=== PATIENT | female | born 1990 | race Caucasian/White ===

== ENCOUNTER 2021-09-07 11:02 | Outpatient (CLI) | payer BC, SELFPAY ==
[2021-09-07 12:01] LABS: Absolute Lymphocyte Count 2.03 X10^3/uL (0.83-4.51); Absolute Neutrophil Count 6.7 X10^3/uL (2.0-7.7); Basophil# 0.02 X10^3/uL; Basophil% 0.2 % (0-1); Eosinophil# 0.05 X10^3/uL; Eosinophils% 0.5 % (0-5); Hematocrit 39.3 % (37-47); Hemoglobin 13.6 g/dL (12.0-15.0); Lymphocyte # 2.03 X10^3/ul (0.83-4.51); Lymphocyte % 21.2 % (19-41); Mean Corp Hgb Conc 34.6 g/dL (32-36); Mean Corpuscular Volume 86.6 fL (81-99); Mean Platelet Vol. 9.3 fl (6.2-12.0); Monocyte# 0.78 X10^3/uL; Monocyte% 8.2 % (0-10); NRBC Flagged by Analyzer 0 % (0-5); Neutrophil # 6.67 X10^3/uL (2.7-7.7); Neutrophil % 69.7 % (47-70); Platelet Count 311 K/mm3 (150-450); RBC Distribution Width CV 12.5 % (11.6-14.6); RBC Distribution Width SD 39.3 fl (35.1-43.9); Red Blood Count 4.54 M/mm3 (4.2-5.4); White Blood Count 9.6 K/mm3 (4.4-11.0)
[2021-09-07 13:00] LABS: HIV - WCH Non-Reactive (Nonreactive); Hepatitis B Surface Antigen Non-Reactive (Nonreactive); Hepatitis C Antibody Non-Reactive (Nonreactive); Rubella IgG Reactive (Nonreactive); Syphilis Antibodies Non-reactive
[2021-09-11 18:08] LABS: Chlamydia By Nucleic Acid AMP Negative (Negative)
[2021-09-12 16:46] LABS: Gonococcus By Nucleic Acid AMP Negative (Negative)
== END 2021-09-07 23:59 | disposition short-term general hospital (02) ==
PROVIDERS: Visit Provider Student in an Organized Health Care Education/Training Program
DX: Z34.81 Encounter for supervision of other normal pregnancy, first trimester (principal)
CPT/HCPCS: 36415; 85025; 86703; 86762; 86780; 86803; 87086; 87340; 87491; 87591

== ENCOUNTER → 2022-01-09 | Outpatient (CLI) | payer BC, SELFPAY ==
[2022-01-09 09:13] LABS: Hematocrit 34.7 % (37-47); Hemoglobin 11.6 g/dL (12.0-15.0); Mean Corp Hgb Conc 33.4 g/dL (32-36); Mean Corpuscular Hgb 29.3 pg (27.0-32.0); Mean Corpuscular Volume 87.6 fL (81-99); Mean Platelet Vol. 9.4 fl (6.2-12.0); Platelet Count 271 K/mm3 (150-450); RBC Distribution Width CV 11.9 % (11.6-14.6); RBC Distribution Width SD 38.2 fl (35.1-43.9); Red Blood Count 3.96 M/mm3 (4.2-5.4); White Blood Count 8.9 K/mm3 (4.4-11.0)
[2022-01-09 09:41] LABS: Glucose Challenge Gest 1H 50g 114 mg/dL (70-140)
== END | disposition home or self-care (01) ==
PROVIDERS: Visit Provider Student in an Organized Health Care Education/Training Program
DX: Z34.83 Encounter for supervision of other normal pregnancy, third trimester (principal)
CPT/HCPCS: 36415; 82950; 85027

== ENCOUNTER → 2022-03-23 | Outpatient (CLI) | payer BC, SELFPAY | END | disposition home or self-care (01) | LOC: LABSPEC 13:02 | PROVIDERS: Visit Provider Student in an Organized Health Care Education/Training Program | DX: Z36.85 Encounter for antenatal screening for Streptococcus B (principal) | CPT/HCPCS: 87081 ==

== ENCOUNTER 2022-04-10 12:25 | Inpatient (IN) | payer BC, SELFPAY ==
[2022-04-10] VITALS (23 sets, daily range): BP systolic 106–177; BP diastolic 58–88; PULSE 86–133; TEMP 36.8–37.3; O2SAT 97–99; BMI 34.1
[2022-04-10 11:05] LABS: ROM Internal Control Test YES-OK TO RESULT pt. (Internal QC); ROM Patient Test Negative (Negative)
--- NOTE | 2022-04-10 12:33 | PCM.HP.BLA ---
History and Physical Date of Admission: 04/10/22 HPI: 31-year-old G2, P0 at 39/3 weeks, MARVA 04/14/2022 by LMP, admitted for induction of labor for nonreassuring heart tones. Patient originally presented to triage for leaking fluid, ROM was negative. Reports lower abdominal discomfort and irregular. Denies regular contractions, vaginal bleeding. Reports movement. Denies headache, vision changes, chest pain or shortness of breath, nausea or vomiting fevers or chills, diarrhea constipation. 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 SAB, D&C G2: Current Medical history: Denies Surgical history: D&C Medications: vitamin Allergies: No known drug allergies Social history: Denies tobacco, alcohol, drug use Family history: Noncontributory Review of system: Negative otherwise stated above Physical exam Blood pressure 125/78, pulse 96% on room air, temp 98.8 ?F General: No acute distress HEENT: Normocephalic/atraumatic, PERRLA Cardiorespiratory: No increased effort Abdomen: Soft, nontender, gravid Extremities: No edema Musculoskeletal: Strength 5 out of 5 throughout all extremities Neurologic: No focal deficits Cervical exam: 1.5 cm per RN heart rate: 145/mod maxim/+accel/+ intermittent variabl decels [place]: irregular panel GBS neg 03/23 B positive HIV negative Hepatitis B/C neg Gonorrhea and chlamydia negative Syphilis negative Rubella immune Labs pending Assessment/Plan: 31-year-old G2, P0 at 39/3 weeks, MARVA 04/14/2022 by LMP, admitted for induction of labor for nonreassuring heart tones at term. uncomplicated. ?Overall status reassuring, however intermittent variable decelerations present. Discussed options of continued monitoring versus induction of labor with patient and her . Discussed method of an induction, process, as well as risks of intolerance and section. All questions answered. Risks and benefits of each option discussed. As patient is at term, recommend admission with induction of labor at this time. Patient amenable for induction of labor. ?Induction of labor with Pitocin ?Plans epidural ?GBS negative Assessment & Plan Assessment/Plan (1) 39 weeks gestation of :
[2022-04-10] MEDS: Lactated Ringers 1,000 ML 200 ML IV ×2 (13:20→19:18)
[2022-04-10 13:32] LABS: Absolute Lymphocyte Count 2.01 X10^3/uL (0.83-4.51); Basophil# 0.02 X10^3/uL; Basophil% 0.2 % (0-1); Eosinophil# 0.05 X10^3/uL; Eosinophils% 0.5 % (0-5); Hematocrit 34.2 % (37-47); Hemoglobin 11.3 g/dL (12.0-15.0); Lymphocyte # 2.01 X10^3/ul (0.83-4.51); Lymphocyte % 20.1 % (19-41); Mean Corpuscular Hgb 26.7 pg (27.0-32.0); Mean Corpuscular Volume 80.7 fL (81-99); Mean Platelet Vol. 10.1 fl (6.2-12.0); Monocyte# 0.84 X10^3/uL; Monocyte% 8.4 % (0-10); NRBC Flagged by Analyzer 0 % (0-5); Neutrophil # 7.03 X10^3/uL (2.7-7.7); Neutrophil % 70.2 % (47-70); Platelet Count 290 K/mm3 (150-450); RBC Distribution Width CV 13.7 % (11.6-14.6); Red Blood Count 4.24 M/mm3 (4.2-5.4)
[2022-04-10] MEDS: Oxytocin 30 units/NS 500 ml 30 UNITS/500 ML IV.SOLN IV (14:58)
[2022-04-10] MEDS: LACTATED RINGERS 500 ML 999 ML IV (16:53)
[2022-04-10] MEDS: fentaNYL-bupivacaine (epidural) 100 ML BAG EPIDURAL ×2 (17:40→21:44)
[2022-04-10] MEDS: 0.9% Saline Lock 10 ML Syringe IV (21:50)
[2022-04-10] MEDS: Ondansetron 4 MG/2 ML Vial IV (21:50)
[2022-04-11] VITALS (32 sets, daily range): BP systolic 101–138; BP diastolic 53–75; PULSE 70–168; TEMP 36.8–37.9; O2SAT 97–100
[2022-04-11] MEDS: Lactated Ringers 1,000 ML 200 ML IV ×4 (00:08→15:05)
[2022-04-11] MEDS: Ondansetron 4 MG/2 ML Vial IV ×3 (02:55→16:18)
[2022-04-11] MEDS: 0.9% Saline Lock 10 ML Syringe IV ×2 (02:55→22:33)
[2022-04-11] MEDS: fentaNYL-bupivacaine (epidural) 100 ML BAG EPIDURAL ×4 (02:55→17:45)
--- NOTE | 2022-04-11 08:20 | PCM.PN.OB ---
Subjective Subjective Patient seen and examined. Comfortable with epidural. Objective Data Objective Data Vital Signs: Vital Signs Temp Pulse BP Pulse Ox 99.0 F 112 H 109/60 98 04/11/22 07:20 04/11/22 07:21 04/11/22 07:21 04/11/22 07:20 Weight: 87.362 kg Body Mass Index (BMI) 34.1 Intake & Output: Intake and Output for Last 24 Hours 04/09/22 04/10/22 04/11/22 23:59 23:59 23:59 Intake Total 1512.14 / 1512.14 2276.47 / 2276.47 Output Total 1900 / 1900 Balance 1512.14 / 1512.14 376.47 / 376.47 Lab / Micro Data Result Diagrams: 04/10/22 13:20 Labs: Laboratory Results - last 24 hr 04/10/22 10:40: Vag Amniotic Fld Detect Negative 04/10/22 13:20: WBC 10.0, RBC 4.24, Hgb 11.3 L, Hct 34.2 L, MCV 80.7 L, MCH 26.7 L, MCHC 33.0, RDW Std Deviation 39.0, RDW Coeff of Amber 13.7, Plt Count 290, MPV 10.1, Immature Gran % (Auto) 0.600, Neut % (Auto) 70.2 H, Lymph % (Auto) 20.1, [place] % (Auto) 8.4, Eos % (Auto) 0.5, Baso % (Auto) 0.2, Absolute Neuts (auto) 7.0, Absolute Lymphs (auto) 2.01, Nucleated RBC % 0 04/10/22 13:20: Blood Type B POSITIVE, Antibody Screen NEGATIVE Micro: Microbiology 04/10/22 13:20 Nasal Secretion SARS-CoV-2 Antigen (Rapid) - Final Physical Exam Const alert, oriented x3 and no apparent distress Resp normal respiratory effort GI soft to palpation and non-tender Inspection: gravid Narrative: 5-6/90/0 AROM clear fluid Extremity no pedal edema Neuro no focal motor deficits NST FHR Rate Baby A Baseline: 145 Variability:: Moderate Accelerations:: 15 x 15 Decelerations:: None FHR Category:: Category I Assessment & Plan (1) 39 weeks gestation of : PLAN: Plan 31-year-old G2, P0 at 39/4 weeks continued induction of labor. Continue titrating Pitocin as tolerated, AROM this morning clear fluid.
[2022-04-11] MEDS: Oxytocin 30 units/NS 500 ml 30 UNITS/500 ML IV.SOLN 334 UNITS IV (19:04)
[2022-04-11] MEDS: Methylergonovine 0.2 MG/ML Ampul IM (19:06)
--- NOTE | 2022-04-11 19:20 | EX.PCM.OBRPT ---
Vaginal Delivery Findings Description of Procedure: Preop diagnosis: Term, maternal exhaustion Postop diagnosis: Term, maternal exhaustion Procedure: Vacuum-assisted vaginal delivery Surgeon: Serjio Capone MD Anesthesia: Epidural EBL: 1050 cc Complications: None Findings: Male infant in vertex position Apgars 8/9. Second-degree midline perineal laceration. Consent: Patient 39 weeks proceeded to complete dilation and is pushed for greater than 3 hours. The patient felt extreme exhaustion. Exam revealed head direct OA and +2 station. Pelvis felt adequate and appropriate for vaginal delivery. Fetus was not macrosomic. Epidural anesthesia was adequate for pain relief. Discussed options including section versus operative delivery versus expectant management. Risk benefits alternatives discussed. Patient elects for vacuum-assisted vaginal delivery, understands risks of cephalhematoma and shoulder dystocia. The process of vacuum-assisted vaginal delivery was explained and patient was shown the vacuum. Spin Table Operator was notified and arrived to delivery. Procedure: Vaginal examination reconfirmed direct OA position and +2 station. Kiwi vacuum was applied over the sagittal suture about 3 cm in front of the posterior fontanelle. Vacuum pressure was applied. The edge of the cup was carefully examined and no maternal tissue was entrapped under the cup. Gentle horizontal traction along the pelvic access in coordination with uterine contraction maternal pushing was applied. Progress of descent was noted with each pull. The handle of the vacuum device was gradually elevated when the perineum began to bulge. The cup did not pop off through the procedure. The cup was removed after the head was delivered. Head and shoulders were delivered with ease. Cord was cut and clamped. It was handed off to patient. Placenta was delivered via cord traction and fundal massage. IV oxytocin was initiated on facilitate uterine contractions. Methergine IM was given prophylactically. The cervix and vaginal wall were thoroughly examined. Second-degree midline perineal laceration was noted and repaired in typical fashion. The was examined after delivery and no visible lacerations or bruises were found.
[2022-04-11] MEDS: Ibuprofen 600 MG Tablet PO (20:19)
[2022-04-11] MEDS: Benzocaine/Lanolin/Aloe Vera 1 SPRAY EACH TOPICAL (20:19)
[2022-04-12 00:28] VITALS: BP 114/73; PULSE 90; RESP 18; TEMP 36.8; O2SAT 96
[2022-04-12 03:25] VITALS: BP 113/74; PULSE 90; RESP 18; TEMP 36.8; O2SAT 97
[2022-04-12] MEDS: Senna/Docusate Sodium 1 Tablet PO (06:50)
--- NOTE | 2022-04-12 07:10 | PCM.PN.OB ---
Subjective Subjective Working on breast-feeding. Lochia minimal. Having some issues with bladder control. Had this issue prior to delivery and had seen specialist in past. Voiding not completely uncontrollable but has had some leaking. Objective Data Objective Data Vital Signs: Vital Signs Temp Pulse Resp BP Pulse Ox O2 Del Method 98.3 F 90 18 113/74 97 Room Air 04/12/22 03:25 04/12/22 03:25 04/12/22 03:25 04/12/22 03:25 04/12/22 03:04/12/22 03:25 Oxygen Delivery Method Room Air Weight: 87.362 kg Body Mass Index (BMI) 34.1 Intake & Output: Intake and Output for Last 24 Hours 04/10/22 04/11/22 04/12/22 23:59 23:59 23:59 Intake Total 1512.14 / 1512.14 5900.81 / 5900.81 Output Total 3700 / 3700 600 / 600 Balance 1512.14 / 1512.14 2200.81 / 2200.81 -600 / -600 Lab / Micro Data Result Diagrams: 04/10/22 13:20 Micro: Microbiology 04/10/22 13:20 Nasal Secretion SARS-CoV-2 Antigen (Rapid) - Final Physical Exam Const alert, oriented x3 and no apparent distress HEENT normocephalic Head and Scalp: atraumatic Neck full ROM Resp normal respiratory effort Cardio regular rate GI normal to inspection, nondistended, normoactive bowel sounds GI Narrative: Uterus 2 cm below umbilicus Back/Spine normal ROM Extremity normal to inspection Extremity Narrative: Minimal pedal edema Neuro no focal motor deficits and no sensory deficits noted Psych mental status grossly normal and affect normal Assessment & Plan (1) Vaginal delivery: PLAN: day 1 status post vacuum-assisted vaginal delivery for maternal exhaustion. Discussed urinary control. Recommend pelvic floor therapy. Follow-up with specialist if not improved in 1 to 2 weeks. Home tomorrow.
[2022-04-12 08:15] VITALS: BP 101/65; PULSE 89; RESP 16; TEMP 36.8; O2SAT 96
[2022-04-12] MEDS: Acetaminophen 500 MG Tablet 1000 MG PO ×3 (08:17→22:04)
[2022-04-12 12:06] VITALS: BP 102/66; PULSE 85; RESP 16; TEMP 36.8; O2SAT 96
[2022-04-12] MEDS: Ibuprofen 600 MG Tablet PO ×2 (12:17→19:23)
--- NOTE | 2022-04-12 16:30 | CASEMGMT ---
Social Work Assessment Labor and Delivery Unit Patient Address: [address] [place] [address]., [place] [address] Phone number: [phone] Date of Referral: 04/11/2022 Time of Referral: 2107 Referred By: Dr. Serjio Capone Date of Intervention: 04/12/2022 Time of Intervention: 1629 Reason for Referral: Maternal anxiety History obtained from: Medical records and mother of baby (MOB) Paris Mathias; father of baby (FOB) Clifton Mathias present for part of conversation Household composition: MOB and FOB live together. No reported concerns with housing. Patient's parent/guardian status: TYLER is a 31-year-old female, to the FOB for the last 2 years but together since 2015. During private conversation MOB shared that FOB is a good and helps MOB with her anxiety. MOB denied any abuse, control or intimidation in this relationship. [place] infant is the first child for both parents. baby boy Chino Mathias was born on 04/11/2022. Medical History: TYLER is 2, para 0 now 1 after delivering [place]. First trimester miscarriage in 2020. care adequate. Apgars at are 8 and 9 at 1 and 5 minutes of life respectively. weight 9 pounds 10 ounces. 39 weeks gestation at delivery. Educational Status: College. No issues with reading, writing, or learning comprehension. 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 No reported concerns with finances. Infant Supplies: MOB and FOB report to have necessary supplies to care for the baby including safe sleep spaces and a car seat. MOB is breast-feeding. Childcare/Caregiver(s): MOB will be the primary caregiver along with help from the FOB. Parents do have fan blade aligner lined up if needed after MOB returns to work. Transportation: No reported concerns with transportation and both parents drive. Programs/Agencies Involved: No agency involvement. Declined help grow referral. Declined nurse visit program in [facility]. MOB reports to have a chief of police lined up and plans to work with [facility]. Children Services/Legal Issues: No history Behavioral Health Issues: Mental Health History: MOB reports history of being anxious but never to the point of needing medication or any type of intervention. MOB denies any history of suicidal or homicidal ideation, planning, intent or attempts. No depression history reported. [place] depression screen during this assessment was a score of 4, falling below the threshold for any depression or anxiety. Substance Use History: MOB and FOB denies any substance use history including alcohol or marijuana. No tobacco use. Family History: MOB reports there is some anxiety in her family. MOB reports believe her sister may have had a history of depression. Drug Screens: No drug screens noted in record. Family/Social Stressors: No reported stressors. Support Systems: FOB is reported as a support. MOB reports for emotional support would talk with her best friend who is a manager social, MOB's mother or MOB sister. Depression/Shaken Baby/Safe Sleeping: Reviewed safe sleeping and shaken baby prevention. Both parents able to provide appropriate responses. ASSESSMENT: Met with MOB and FOB in room, introducing to self and social work role. Both agreeable, pleasant and willing to talk to this service writer. MOB answered most of the questions, with FOB providing input intermittently and appropriately. Noted when education provided on community resources, MOB was quiet and looked to the FOB who politely declined any referrals. Both voiced acceptance however of having information provided to look at home. MOB and FOB report to have needed supplies for infant, to have support, and FOB plans to take a week or so off of work to help out. FOB's parents live close by, and then MOB's family is 30-45 minutes away but also able to help if needed. Educated both parents to mood and anxiety disorders, risk factors, and importance of seeking out help and support should symptoms arise and/or become distressing. MOB voiced understanding and agreement that would be willing to speak up if needed. When meeting with MOB privately, MOB denied any concerns for home going. No voiced concerns by staff regarding parent/child interactions or bonding. This service writer observed MOB to work on breast feeding, and handled the baby appropriately and gently. FOB talked about helping with some diaper changing since 's delivery. Both MOB and FOB voice positive feelings about the baby. Provided resource list for [facility] which includes information support for basic needs, counseling, senior care. Information on [facility] and the nurse visit program. Information on mood and anxiety disorders given. PLAN: MOB and to home when ready. Resources provided for home going. No other services requested or indicated. -ELIAS Matson, RUSLAN *This note was generated with Omate dictation software. It may contain incorrect words, spelling, and punctuation that were not noted in review of the chart prior to signing*
[2022-04-12 17:19] VITALS: BP 102/69; PULSE 91; RESP 16; TEMP 36.3; O2SAT 97
[2022-04-12 21:06] VITALS: BP 106/61; PULSE 68; RESP 17; TEMP 36.4; O2SAT 98
[2022-04-13 01:27] VITALS: BP 105/51; PULSE 75; RESP 16; TEMP 36.4; O2SAT 97
[2022-04-13] MEDS: Ibuprofen 600 MG Tablet PO ×2 (01:30→08:05)
--- NOTE | 2022-04-13 07:55 | DS.PCM_ITS ---
Discharge Summary Date of Admission: 04/10/22 Date of Discharge: 04/13/22 Summary: Patient arrived on 04/10/2022 for induction of labor with nonreassuring heart tones. Patient subsequently delivered via vacuum-assisted vaginal delivery for maternal exhaustion on 04/11/2022. Patient with routine recovery and discharged home on 04/13/2022 Meaningful Use Info Meaningful Use Diagnoses (Choose all that apply): None applicable Discharge Plan Admission Admit Date/Time: 04/10/22 12:25 Primary Reason for Your Visit: Induction of labor Attending Provider: Serjio Capone Instructions Additional Instructions / Restrictions: Regular diet. Okay to shower. weightbearing as tolerated. No records 4 to 6 w eeks call if chest pain, shortness of breath. Follow-up 4 to 6 weeks Discharge Orders/Prescriptions Prescriptions: No Action Probiotic 3 billion cell Capsule 3 cell PO DAILY 1 mg Tablet 1 tab PO DAILY Disposition Disposition (needs filled in before D/C Order can be placed): Home, Self Care
--- NOTE | 2022-04-13 07:58 | PN.OBGYN_ITS ---
Subjective Subjective No overnight complaints Objective Data Objective Data Vital Signs: Vital Signs Temp Pulse Resp BP Pulse Ox O2 Del Method 97.6 F L 75 16 105/51 L 97 Room Air 04/13/22 01:27 04/13/22 01:27 04/13/22 01:27 04/13/22 01:27 04/13/22 01:04/13/22 01:27 Oxygen Delivery Method Room Air Weight: 192 lb 9.6 oz Body Mass Index (BMI) 34.1 Intake & Output: Intake and Output for Last 24 Hours 04/11/22 04/12/22 04/13/22 23:59 23:59 23:59 Intake Total 5900.81 / 5900.81 Output Total 3700 / 3700 600 / 600 Balance 2200.81 / 2200.81 -600 / -600 Lab / Micro Data Result Diagrams: 04/10/22 13:20 Micro: Microbiology 04/10/22 13:20 Nasal Secretion SARS-CoV-2 Antigen (Rapid) - Final Physical Exam Const alert, oriented x3, no apparent distress, average body habitus, healthy appearing and well nourished HEENT normocephalic and moist oral mucous membranes Eyes PERRL Neck full ROM Resp normal respiratory effort, no retractions and no use of accessory muscles GI GI Narrative: Soft, nontender, uterus firm and below umbilicus Extremity normal to inspection and full ROM Neuro moves all extremities, no focal motor deficits and no sensory deficits noted Psych mental status grossly normal, affect normal, speech normal and activity/motor behavior normal Assessment & Plan (1) Vaginal delivery: PLAN: day 2 status post vacuum-assisted vaginal delivery for maternal exhaustion. Breast-feeding. Pain well controlled. Okay to discharge home if okay with [employer] scout
[2022-04-13 08:00] VITALS: BP 106/81; PULSE 74; RESP 16; TEMP 36.3; O2SAT 96
--- NOTE | 2022-04-13 11:00 | NURSING ---
Reviewed and agreed with Ara RN charting.
--- NOTE | 2022-04-19 15:10 | NURSING ---
Follow up phone call attempt, voicemail left.
== END 2022-04-13 11:21 | disposition home or self-care (01) | DRG 807 ==
LOC: WPOUT 12:29 → WP 12:29
PROVIDERS: Admitting Provider Student in an Organized Health Care Education/Training Program; Referring Provider Obstetrics & Gynecology; Visit Provider Obstetrics & Gynecology
DX: O75.81 Maternal exhaustion complicating labor and delivery (principal); Z37.0 Single live birth; O76 Abnormality in fetal heart rate and rhythm complicating labor and delivery; O70.1 Second degree perineal laceration during delivery; Z3A.39 39 weeks gestation of pregnancy
CPT/HCPCS: 59025; 59050; 84112; 85025; 86850; 86900; 86901; 87426; 99218; J7120; A4216; G0378; J2405

== ENCOUNTER → 2022-11-30 | Outpatient (CLI) | payer OTHER, SELFPAY ==
[2022-12-07 00:07] LABS: HPV APTIMA, High Risk Negative (Negative)
== END | disposition home or self-care (01) ==
LOC: LABSPEC 11:13
PROVIDERS: Visit Provider Student in an Organized Health Care Education/Training Program
DX: Z12.4 Encounter for screening for malignant neoplasm of cervix (principal)
CPT/HCPCS: 87624; 88175; G0145

== ENCOUNTER → 2024-04-09 | Outpatient (CLI) | payer OTHER, SELFPAY ==
[2024-04-09 13:05] LABS: Absolute Lymphocyte Count 1.92 X10^3/uL (0.83-4.51); Absolute Neutrophil Count 7.3 X10^3/uL (2.0-7.7); Basophil# 0.03 X10^3/uL; Basophil% 0.3 % (0-1); Hematocrit 39.2 % (37-47); Lymphocyte # 1.92 X10^3/ul (0.83-4.51); Lymphocyte % 18.9 % (19-41); Mean Corp Hgb Conc 33.2 g/dL (32-36); Mean Corpuscular Hgb 28.2 pg (27.0-32.0); Mean Platelet Vol. 9.1 fl (6.2-12.0); Monocyte# 0.76 X10^3/uL; Monocyte% 7.5 % (0-10); NRBC Flagged by Analyzer 0 % (0-5); Neutrophil # 7.34 X10^3/uL (2.7-7.7); Platelet Count 358 K/mm3 (150-450); RBC Distribution Width CV 12.8 % (11.6-14.6); RBC Distribution Width SD 39.5 fl (35.1-43.9); Red Blood Count 4.61 M/mm3 (4.2-5.4); White Blood Count 10.2 K/mm3 (4.4-11.0)
[2024-04-09 14:19] LABS: HIV - WCH Non-Reactive (Nonreactive); Hepatitis B Surface Antigen Non-Reactive (Nonreactive); Hepatitis C Antibody Non-Reactive (Nonreactive); Rubella IgG Reactive (Nonreactive); Syphilis Antibodies Non-reactive
[2024-04-14 22:07] LABS: Chlamydia By Nucleic Acid AMP Negative (Negative); Gonococcus By Nucleic Acid AMP Negative (Negative)
== END | disposition home or self-care (01) ==
PROVIDERS: PCP General Practice; Referring Provider Advanced Practice Midwife; Visit Provider Advanced Practice Midwife
DX: O09.90 Supervision of high risk pregnancy, unspecified, unspecified trimester (principal); Z3A.00 Weeks of gestation of pregnancy not specified
CPT/HCPCS: 36415; 85025; 86703; 86762; 86780; 86803; 86850; 86900; 86901; 87086; 87340; 87491; 87591

== ENCOUNTER → 2024-06-04 | Outpatient (CLI) | payer OTHER, SELFPAY ==
--- OUTSIDE RECORDS SUMMARY | 2024-06-04 10:12 | XMS RPT_ITS | CCD ---
Author Organization [facility] [employer] [facility] Care Team Providers Care Sweatband Shaper Name Role Phone FLAQUITA CORTES JR Unavailable Unavaila ble Unavailable Primary Care Provider Nasim Almaguer MD, Alexander Morin Primary Care Provider [phone] Alexander Almaguer MD Unavailable ALEXANDER ALMAGUER Attending Unavailable ALEXANDER ALMAGUER Primary Care Unavailable ALEXANDER ALMAGUER Primary Care Unavailable Medications Current Medications Medication Drug Class(es) Dates Sig (Normalized) Sig (Original) predniSONE 20 mg oral tablet (1 source) Start: 09-04-2022 End: 09-09-2022 take 2 tablets by mouth once daily predniSONE (DELTASONE) 20 mg tablet Indications: Eustachian tube dysfunction, bilateral Take 2 tablets by mouth once daily for 5 days. 10 tablet 0 09/04/2022 09/09/2022 Active Comment on above: Take 2 tablets by [facility] once daily for 5 days. Completed/Discontinued Medications Medication Drug Class(es) Dates Sig (Normalized) Sig (Original) fexofenadine hydrochloride 180 mg oral tablet (1 source) Histamine-1 Receptor Antagonist Start: 09-04-2022 take 1 tablet by mouth once daily fexofenadine (ZECHARIAH ALLERGY) 180 mg tablet Indications: Eustachian tube dysfunction, bilateral Take 1 tablet by mouth once daily. 30 tablet 0 09/04/2022 Active Comment on above: Take 1 tablet by [facility] once daily. fluticasone propionate 0.05 mg/actuat metered dose nasal spray (1 source) Corticosteroid Start: 09-04-2022 take 1 spray(s) nasal route twice daily fluticasone (FLONASE ALLERGY RELIEF) 50 mcg/actuation nasal spray Indications: Eustachian tube dysfunction, bilateral Use 1 Munden in each nostril twice daily. 1 Each 0 09/04/2022 Active Comment on above: Use 1 Munden in each nostril twice daily. MULTIVITAMIN WITH MINERALS (HAIR,SKIN AND NAILS ORAL) (1 source) MULTIVITAMIN WIT H MINERALS (HAIR,SKIN AND NAILS ORAL) Take by mouth. 0 Active Comment on above: Take by mouth. phenazopyridine hydrochloride 200 mg oral tablet (1 source) Start: 06-25-2018 take 1 tablet by mouth every twelve hours as needed phenazopyridine (PYRIDIUM, GERIDIUM) 200 mg tablet Take 1 tablet by mouth twice daily as needed. 6 tablet 0 06/25/2018 Active Comment on above: Take 1 tablet by melissa twice daily as needed. Problems Active Problems Problem Classification Problem Date Documented Da te Episodic/Chronic Disorders of lipid metabolism (5 sources) Mixed hyperlipidemia; Translations: [Mixed hyperlipidemia] Onset: 01-17-2024 01-17-2024 Chronic Otitis media and related conditions (1 source) Dysfunction of bilateral eustachian tubes; Translations: [Other specified disorders of Eustachian tube, bilateral] Episodic Urinary tract infections (1 source) Cystitis, unspecified without hematuria; Translations: [Cystitis, unspecified without hematuria] Onset: 06-25-2018 Episodic Past or Other Problems Problem Classification Problem Date Documented Date Episodic/Chronic Sexually transmitted infections (not HIV or hepatitis) (1 source) Abnormal cervical Papanicolaou smear; Translations: [Cervical high risk human papillomavirus (HPV) DNA test positive] Onset: 02-05-2017 02-05-2017 Episodic Unclassified (1 source) Onset: 01-17-2024 01-17-2024 Results Test Name Value Interpretation Reference Range Facility CBC W Auto Differential pane l (Bld)on 02-08-2024 Basophils (Bld) [#/Vol] 0.03 x10*3/uL Normal 0.00-0.10 [facility] Comment on above: Performed By: #### 5 7021-8 #### ALESSANDRA Escobedo ([id number]) [facility] ([facility]) [address] [place] [address] 32593 Basophils/100 WBC (Bld) 0.4 % Normal 0.0-2.0 [facility] Comment on above: Performed By: #### 5 7021-8 #### ALESSANDRA Escobedo ([id number]) [facility] ([facility]) [address] [place] [address] 51821 Eosinophils (Bld) [#/Vol] 0.10 x10*3/uL Normal 0.00-0.70 [facility] Comment on above: Performed By: #### 5 7021-8 #### ALESSANDRA Escobedo ([id number]) [facility] ([facility]) [address] [place] [address] 47425 Eosinophils/100 WBC (Bld) 1.3 % Normal 0.0-6.0 [facility] Comment on above: Performed By: #### 5 7021-8 #### ALESSANDRA Escobedo ([id number]) [facility] ([facility]) [address] [place] [address] 85004 Erythrocyte distribution width (RBC) [Ratio] 12.3 % Normal 11.5-14.5 [facility] Comment on above: Performed By: #### 5 7021-8 #### ALESSANDRA Escobedo ([id number]) [facility] ([facility]) [address] [place] [address] 20142 Hematocrit (Bld) [Volume fraction] 43.2 % Normal 36.0-46.0 [facility] Comment on above: Performed By: #### 5 7021-8 #### ALESSANDRA Escobedo ([id number]) [facility] ([facility]) [address] [place] [address] 96219 Hemoglobin (Bld) [Mass/Vol] 14.0 g/dL Normal 12.0-16.0 [facility] Comment on above: Performed By: #### 5 7021-8 #### ALESSANDRA Escobedo ([id number]) [facility] ([facility]) [address] [place] [address] 61614 Immature granulocytes (Bld) [#/Vol] 0.01 x10*3/uL Normal 0.00-0.70 [facility] Comment on above: Performed By: #### 5 7021-8 #### ALESSANDRA Escobedo ([id number]) [facility] ([facility]) [id number] [place] [address] 57336 Immature granulocytes/100 WBC (Bld) 0.1 % Normal 0.0-0.9 [facility] Comment on above: Result Comment: Jigna ture Granulocyte Count (IG) includes promyelocytes, myelocytes and metamyelocytes but does not include bands. Percent differential counts (%) should be interpreted in the context of the absolute cell counts (cells/UL). Performed By: #### 5 7021-8 #### ALESSANDRA Escobedo ([id number]) [facility] ([facility]) [address] [place] [address] 99580 Lymphocytes (Bld) [#/Vol] 2.63 x10*3/uL Normal 1.20-4.80 [facility] Comment on above: Performed By: #### 5 7021-8 #### ALESSANDRA Escobedo ([id number]) [facility] ([facility]) [address] [place] [address] 86312 Lymphocytes/100 WBC (Bld) 35.3 % Normal 13.0-44.0 [facility] Comment on above: Performed By: #### 5 7021-8 #### ALESSANDRA Escobedo ([id number]) [facility] ([facility]) [address] [place] [address] 36793 MCH (RBC) [Entitic mass] 28.3 pg Normal 26.0-34.0 [facility] Comment on above: Performed By: #### 5 7021-8 #### ALESSANDRA Escobedo ([id number]) [facility] ([facility]) [address] [place] [address] 23023 MCHC (RBC) [Mass/Vol] 32.4 g/dL Normal 32.0-36.0 [facility] Comment on above: Performed By: #### 5 7021-8 #### ALESSANDRA Escobedo ([id number]) [facility] ([facility]) [address] [place] [address] 45315 MCV (RBC) [Entitic vol] 87 fL Normal 80-100 [facility] Comment on above: Performed By: #### 5 7021-8 #### ALESSANDRA Escobedo ([id number]) [facility] ([facility]) [address] [place] [address] Monocytes (Bld) [#/Vol] 0.65 x10*3/uL Normal 0.10-1.00 [facility] Comment on above: Performed By: #### 5 7021-8 #### ALESSANDRA Escobedo (96815) [facility] ([facility]) [id number] [place] [address] 91863 Monocytes/100 WBC (Bld) 8.7 % Normal 2.0-10.0 [facility] Comment on above: Performed By: #### 5 7021-8 #### ALESSANDRA Escobedo (59309) [facility] ([facility]) [id number] [place] [address] 12412 Neutrophils (Bld) [#/Vol] 4.03 x10*3/uL Normal 1.20-7.70 [facility] Comment on above: Result Comment: Perc ent differential counts (%) should be interpreted in the context of the absolute cell counts (cells/uL). Performed By: #### 5 7021-8 #### ALESSANDRA Escobedo ([id number]) [facility] ([facility]) [id number] [place] [address] 43798 Neutrophils/100 WBC (Bld) 54.2 % Normal 40.0-80.0 [facility] Comment on above: Performed By: #### 5 7021-8 #### ALESSANDRA Escobedo ([id number]) [facility] ([facility]) [address] [place] [address] Nucleated RBC/100 WBC (Bld) [Ratio] 0.0 /100 WBCs Normal 0.0-0.0 [facility] Comment on above: Performed By: #### 5 7021-8 #### ALESSANDRA Escobedo ([id number]) [facility] ([facility]) [address] [place] [address] Platelets (Bld) [#/Vol] 312 x10*3/uL Normal 150-450 [facility] Comment on above: Performed By: #### 5 7021-8 #### ALESSANDRA Escobedo ([id number]) [facility] ([facility]) [address] [place] [address] RBC (Bld) [#/Vol] 4.94 x10*6/uL Normal 4.00-5.20 [facility] Comment on above: Performed By: #### 5 7021-8 #### ALESSANDRA Escobedo ([id number]) [facility] ([facility]) [address] [place] [address] WBC (Bld) [#/Vol] 7.5 x10*3/uL Normal 4.4-11.3 [facility] Comment on above: Performed By: #### 5 7021-8 #### ALESSANDRA Escobedo (85879) [facility] ([facility]) [id number] [place] [address] 19231 Comprehensive metabolic 2000 panelon 02-08-2024 Albumin BCP dye [Mass/Vol] 4.6 g/dL Normal 3.4-5.0 [facility] Comment on above: Performed By: #### 2 4323-8 #### ALESSANDRA Escobedo (67535) [facility] ([facility]) [address] [place] [address] ALP [Catalytic activity/Vol] 79 U/L Normal 33-110 [facility] Comment on above: Performed By: #### 2 4323-8 #### ALESSANDRA Escobedo ([id number]) [facility] ([facility]) [address] [place] [address] ALT With P-5'-P [Catalytic activity/Vol] 9 U/L Normal 7-45 [facility] Comment on above: Result Comment: Mony ents treated with Sulfasalazine may generate falsely decreased results for ALT. Performed By: #### 2 4323-8 #### ALESSANDRA Escobedo ([id number]) [facility] ([facility]) [address] [place] [address] Anion gap [Moles/Vol] 13 mmol/L Normal 10-20 [facility] Comment on above: Performed By: #### 2 4323-8 #### ALESSANDRA Escobedo ([id number]) [facility] ([facility]) [id number] [place] [address] 88164 AST With P-5'-P [Catalytic activity/Vol] 15 U/L Normal 9-39 [facility] Comment on above: Performed By: #### 2 4323-8 #### ALESSANDRA Escobedo (38092) [facility] ([facility]) [id number] [place] [address] 66817 Bilirubin [Mass/Vol] 0.7 mg/dL Normal 0.0-1.2 [facility] Comment on above: Performed By: #### 2 4323-8 #### ALESSANDRA Escobedo (25927) [facility] ([facility]) [address] [place] [address] 24883 Calcium [Mass/Vol] 9.8 mg/dL Normal 8.6-10.6 [facility] Comment on above: Performed By: #### 2 4323-8 #### ALESSANDRA Escobedo (72362) [facility] ([facility]) [address] [place] [address] 30076 Chloride [Moles/Vol] 102 mmol/L Normal 98-107 [facility] Comment on above: Performed By: #### 2 4323-8 #### ALESSANDRA Escobedo (67941) [facility] ([facility]) [address] [place] [address] 46840 CO2 [Moles/Vol] 27 mmol/L Normal 21-32 [facility] Comment on above: Performed By: #### 2 4323-8 #### ALESSANDRA Escobedo (81923) [facility] ([facility]) [address] [place] [address] 34797 Creatinine [Mass/Vol] 0.66 mg/dL Normal 0.50-1.05 [facility] Comment on above: Performed By: #### 2 4323-8 #### ALESSANDRA Escobedo ([id number]) [facility] ([facility]) [address] [place] [address] GFR/1.73 sq M.predicted MDRD (S/P/Bld) [Vol rate/Area] mL/min/{1.73_m2} Normal >60 [facility] Comment on above: Result Comment: Calc ulations of estimated GFR are performed using the 2020 CKD-EPI Study Refit equation without the race variable for the IDMS-Traceable creatinine methods. https://jasn.asnjournals.org/content/early//ASN.231090144 8 Performed By: #### 2 4323-8 #### ALESSANDRA Escobedo ([id number]) [facility] ([facility]) [id number] [place] [address] 83715 Glucose [Mass/Vol] 89 mg/dL Normal 74-99 [facility] Comment on above: Performed By: #### 2 4323-8 #### ALESSANDRA Escoebdo (53301) [facility] ([facility]) [id number] [place] [address] 02317 Potassium [Moles/Vol] 4.3 mmol/L Normal 3.5-5.3 [facility] Comment on above: Performed By: #### 2 4323-8 #### ALESSANDRA FIORE L (99787) [facility] ([facility]) [id number] [place] [address] 23068 Protein [Mass/Vol] 7.5 g/dL Normal 6.4-8.2 [facility] Comment on above: Performed By: #### 2 4323-8 #### ALESSANDRA FIORE L ([id number]) [facility] ([facility]) [id number] [place] [address] 73820 Sodium [Moles/Vol] 138 mmol/L Normal 136-145 [facility] Comment on above: Performed By: #### 2 4323-8 #### ALESSANDRA FIORE L ([id number]) [facility] ([facility]) [id number] [place] [address] 66662 Urea nitrogen [Mass/Vol] 11 mg/dL Normal 6-23 [facility] Comment on above: Performed By: #### 2 4323-8 #### ALESSANDRA Escobedo (69927) [facility] ([facility]) [address] [place] [address] Lipid 1996 panelon 4 Cholesterol [Mass/Vol] 198 mg/dL Normal 0-199 [facility] Comment on above: Result Comment: Age Desirable Borderline High High 0-19 Y 0 - 169 170 - 199 >/= 200 20-24 Y 0 - 189 190 - 224 >/= 225 >24 Y 0 - 199 200 - 239 >/= 240 All ranges are based on fasting samples. Specific therapeutic targets will vary based on patient-specific cardiac risk. Pediatric guidelines reference:Pediatrics 2011, 128(S5).Adult guidelines reference: NCEP ATPIII Guidelines,DANAE 2001, 258:2486-97 Venipuncture immediately after or during the administration of Metamizole may lead to falsely low results. Testing should be performed immediately prior to Metamizole dosing. Performed By: #### 2 4331-1 #### ALESSANDRA Escobedo ([id number]) [facility] ([facility]) [address] [place] [address] Cholesterol in HDL [Mass/Vol] 58.5 mg/dL Normal [facility] Comment on above: Result Comment: Age Very Low Low Normal High 0-19 Y < 35 < 40 40-45 ---- 20-24 Y ---- < 40 >45 ---- >24 Y ---- < 40 40-60 >60 Performed By: #### 2 4331-1 #### ALESSANDRA Escobedo (82573) [facility] ([facility]) [address] [place] [address] Cholesterol in LDL [Mass/Vol] 118 mg/dL High <=99 [facility] Comment on above: Result Comment: Near Borderline AGE Desirable Optimal High High Very High 0-19 Y 0 - 109 --- 110-129 >/= 130 ---- 20-24 Y 0 - 119 --- 120-159 >/= 160 ---- >24 Y 0 - 99 100-129 130-159 160-189 >/=190 Performed By: #### 2 4331-1 #### ALESSANDRA Escobedo (48587) [facility] ([facility]) [id number] [place] [address] 19052 Cholesterol in VLDL [Mass/Vol] 21 mg/dL Normal 0-40 [facility] Comment on above: Performed By: #### 2 4331-1 #### ALESSANDRA Escobedo ([id number]) [facility] ([facility]) [id number] [place] [address] 27785 CHOLESTEROL/HDL RATIO 3.4 Normal [facility] Comment on above: Result Comment: Ref Values Desirable < 3.4 High Risk > 5.0 Performed By: #### 2 4331-1 #### ALESSANDRA Escobedo ([id number]) [facility] ([facility]) [id number] [place] [address] 02967 NON HDL CHOLESTEROL 140 mg/dL Normal 0-149 [facility] Comment on above: Result Comment: Age Desirable Borderline High High Very High 0-19 Y 0 - 119 120 - 144 >/= 145 >/= 160 20-24 Y 0 - 149 150 - 189 >/= 190 ---- >24 Y 30 mg/dL above LDL Cholesterol goal Performed By: #### 2 4331-1 #### ALESSANDRA Escobedo (84346) [facility] ([facility]) [id number] [place] [address] 89260 Triglyceride [Mass/Vol] 107 mg/dL Normal 0-149 [facility] Comment on above: Result Comment: Age Desirable Borderline High High Very High 0 D-90 D 19 - 174 ---- ---- ---- 91 D- 9 Y 0 - 74 75 - 99 >/= 100 ---- 10-19 Y 0 - 89 90 - 129 >/= 130 ---- 20-24 Y 0 - 114 115 - 149 >/= 150 ---- >24 Y 0 - 149 150 - 199 200- 499 >/= 500 Venipuncture immediately after or during the administration of Metamizole may lead to falsely low results. Testing should be performed immediately prior to Metamizole dosing. Performed By: #### 2 4331-1 #### ALESSANDRA Escobedo (75694) [facility] ([facility]) [address] [place] [address] TSH WITH REFLEX TO FREE T4 I F ABNORMALon 02-08-2024 TSH Qn 1.25 m[IU]/L Normal 0.44-3.98 [facility] Comment on above: Order Comment: TSH t esting is performed using different testing methodology at [facility] than at other [facility]. Direct result comparisons should only be made within the same method. Performed By: #### T HYDS #### ALESSANDRA Escobedo ([id number]) [facility] ([facility]) [address] [place] [address] Culture, Throaton 04-19-2023 Culture, Throat ORDER#: [id number] OR DERED BY: QUINCY WILLIAMSON SOURCE: Throat Throat COLLECTED: 04/19/23 19:33 ANTIBIOTICS AT MAXINE.: RECEIVED : 04/19/23 21:59 Culture, Throat FINAL 04/22/23 07:02 Cult,Throat: Oral kevin, negative for Group A Strep and other beta Cult,Throat: hemolytic streptococci [place] [address] Normal [facility] Comment on above: Performed By: #### C XTHR #### [facility] [address] [place] [address] MFM GRAVID LESS THAN 14 WKSo n 12-17-2020 MFM GRAVID LESS THAN 14 WKS Interpretation provided by Perinatologist. Refer to OB Report folder for interpretation. Technologist: CV Dictated By: ANDI COMER, RADIOLOGIST Signed By: ANDI COMER, RADIOLOGIST Transcribed: 12.17.2020 19:39 Signed Out: 12/17/20 19:52:00 Normal [facility] MF TV ECHO OBSTETRICALon MF TV ECHO OBSTETRICAL Interpretation provided by Perinatologist. Refer to OB Report folder for interpretation. Technologist: CV Dictated By: ANDI COMER, RADIOLOGIST Signed By: ANDI COMER, RADIOLOGIST Transcribed: 12.17.2020 19:39 Signed Out: 12/17/20 19:52:00 Normal [facility] SURGICAL PATH REPORTon 12-14 SURGICAL PATH REPORT [facility] Department of Pathology [address] [place] [address] Name: LIZBETH MANRIQUEZ : 1990 Financial [id number] Number: Gender: Female Location: [facility] Admit 30 years Attending HARINDER LOGAN MD Age: Provider: Ordering HARINDER LOGAN MD Provider: Consulting: Surgical Pathology Report ACCESSION: COLLECTED DATE/TIME: RECEIVED DATE/TIME: PATHOLOGIST: [id number] 12/13/2020 07:56 EDT 12/13/2020 16:30 EDT FRANCOIS OCAMPO MD Final Diagnosis PRODUCTS OF CONCEPTION: - CHORIONIC VILLI. FRANCOIS OCAMPO PATHOLOGIST (Electronic Signature) Date Verified 12/14/2020 TS Clinical Data PREOP DIAGNOSIS: BLIGHTED OVUM POSTOP DIAGNOSIS: BLIGHTED OVUM PROCEDURE: SUCTION DILATION AND CURETTAGE SPECIMEN: PRODUCTS OF CONCEPTION Gross Description Labeled products of conception. Received in formalin in a suction apparatus are multiple irregular segments of vaz pink to red black soft tissue. The individual segments have a variable granular to partially smooth glistening membranous character. The specimen in total aggregate measures 5.6 x 5.1 x 2.0 cm. There are no grossly identifiable parts. Cardiac Surgeon sections are submitted in three cassettes. RAULITO/yin 12/13/2020 Codes CPT CODE: 03763 Print Date/ 12/14/2020 14:05 EDT Number: Time: Normal [facility] Comment on above: Performed By: #### 9 [id number] ####[facility] [id number] [place] [address] Medical Director: Francois Ocampo MD ABORHon 12-13-2020 ABORH Interpretation Positive Normal [facility] Comment on above: Performed By: #### C [id number], CD:[id number] #### [facility] [address] [place] [address] Composition Floor Layer: Francois Ocampo MD Patient History Check Previous Hx Normal [facility] Comment on above: Performed By: #### C D:[id number], CD:[id number] #### [facility] [address] [place] [address] Composition Floor Layer: Francois Ocampo MD VS 0.8% a cells 3+ Normal [facility] Comment on above: Performed By: #### C [id number], CD:[id number] #### [facility] [address] [place] [address] Composition Floor Layer: Francois Ocampo MD VS 0.8% b cells 0 [facility] Comment on above: Performed By: #### C [id number], CD:[id number] #### [facility] [address] [place] [address] Composition Floor Layer: Francois Ocampo MD VS Anti-A Unit 0 Normal [facility] Comment on above: Performed By: #### C [id number], CD:[id number] #### [facility] [address] [place] [address] Composition Floor Layer: Francois Ocampo MD VS Anti-B Unit 4+ Normal [facility] Comment on above: Performed By: #### C [id number], CD:[id number] #### [facility] [address] [place] [address] Composition Floor Layer: Francois Ocampo MD VS Anti-D Unit 4+ Normal [facility] Comment on above: Performed By: #### C [id number], CD:[id number] #### [facility] [address] [place] [address] Composition Floor Layer: Francois Ocampo MD ABSCon 12-13-2020 ABSC Final Interp Negative [facility] Comment on above: Performed By: #### C [id number], CD:[id number] #### [facility] [address] [place] [address] Composition Floor Layer: Francois Ocampo MD Pt Hx check done? Yes [facility] Comment on above: Performed By: #### C D:[id number], CD:[id number] #### [facility] [address] [place] [address] Composition Floor Layer: Francois Ocampo MD VS SCI Gel 0 [facility] Comment on above: Performed By: #### C [id number], CD:[id number] #### [facility] [address] [place] [address] Composition Floor Layer: Francois Ocampo MD VS SCII Gel 0 [facility] Comment on above: Performed By: #### C D:[id number], [id number] #### [facility] [address] [place] [address] Composition Floor Layer: Francois Ocampo MD Anesthesiaon 12-13-2020 Anesthesia Patient: FARTUN MANRIQUEZ Age: 30 years Sex: Female : 1990 Associated Diagnoses: None Author: FRANCOIS JOINER MD Postoperative Information Time Seen: Date & Time 12/13/2020 08:40:00. Post Operative Info: Post operative day: Post Anesthesia Care Unit. Patient location: PACU. Assessment Postanesthesia assessment Vitals: Vital Signs (last value in last 48 hours) Temperature Oral: 36.8 degC (12/13/20 06:00:00) Temperature Temporal Artery: 36.4 degC (12/13/20 08:30:00) Respiratory Rate: 19 br/min (12/13/20 08:40:00) Peripheral Pulse Rate: 78 bpm (12/13/20 08:40:00) Heart Rate Monitored: 78 bpm (12/13/20 08:40:00) Systolic Blood Pressure: 118 mmHg (12/13/20 08:40:00) Diastolic Blood Pressure: 76 mmHg (12/13/20 08:40:00) Mean Arterial Pressure, Cuff: 91 mmHg (12/13/20 08:40:00) SpO2: 97 % (12/13/20 08:40:00). Mental status: at preoperative baseline. Respiratory support: normal oxygenation and ventilation. Pain: controlled. Nausea status: abscence of nausea and vomiting. Postoperative hydration status: euvolemic. Notes: normothermia. Normal [facility] Anesthesia Patient: FARTUN MANRIQUEZ Age: 30 years Sex: Female : 1990 Associated Diagnoses: None Author: FRANCOIS JOINER MD DIAGNOSIS: Missed AB. Preoperative Information Procedure/ Case: . NPO greater than 8 hours. Anesthesia history Patient's history: negative. Family's history: negative. Review of Systems ALL SYSTEMS REVIEWED: CV, PULM, GI, , NEURO, HEPATIC, HEME, ENDO, PSYCH, MS HISTORY/ROS: The. Patient denies cardiovascular diseases or asthma. MILES: Denies. Negative screen. Health Status Allergies: Allergies (1) Active Reaction No Known Medication Allergies None Documented Current medications: No qualifying data available LABORATORY DATA Chemistry BMP Plus Mag No qualifying data available. Hematology CBC brief [address] No qualifying data available. Coagulation PT INR [address] No qualifying data available. Test No qualifying data available. Histories Past Medical History: Past Medical History (1) Procedure history: Atkins teeth in 2019 at 29 Years. Last pap - Abnormal - had colp, had bx f/u Q6 mon performed by NONI LEÓN in the month of 06/2018 at 27 Years. 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 Sexual Sexually active: Yes. Uses condoms: Yes. Other contraceptive use: None. Substance Abuse Denies Substance Abuse Tobacco Never (less than 100 in lifetime) Tobacco Use:. Psychosocial History No active psychosocial history has been recorded. Physical Examination VITALS Vital Signs (last value in last 48 hours) Temperature Oral: 36.8 degC (12/13/20 06:00:00) Respiratory Rate: 20 br/min (12/13/20 06:00:00) Heart Rate Monitored: 99 bpm (12/13/20 06:00:00) Systolic Blood Pressure: 128 mmHg (12/13/20 06:00:00) Diastolic Blood Pressure: 75 mmHg (12/13/20 06:00:00) SpO2: 100 % (12/13/20 06:00:00)Height and Weight (last value in last 48 hours) Height/Length Dosin.02 cm (12/13/20 06:00:00) Weight Dosin kg (12/13/20 06:00:00) Weight Measured: 72 kg (12/13/20 06:00:00) General: Alert and oriented. Airway: Mallampati classification: II (soft palate, fauces, uvula visible), No loose teeth. Assessment and Plan [place] [employer] Anesthesiologists (ASA) physical status classification: Class I. Anesthetic Preoperative Plan Premedication. Anesthetic technique: General anesthesia. Special monitoring: Standard ASA monitors.. Postoperative pain management: Per surgeon. Risks discussed: Patient is a low risk candidate for low to mild risk procedure. Informed consent: signed by patient. Notes: Ethnicity: Non white Language: Burundian Smoking: Non smoker Email: Refused Betablocker: None, Charting was completed using voice recognition technology and may include unintended errors.. Normal [facility] COVID-19 by PCR SWEDon 12-13 SARS-CoV-2 (COVID-19) RNA SHILOH+probe Ql (Unsp spec) Negative Normal [facility] Comment on above: Performed By: #### C [id number] #### [facility] [address] [place] [address] Composition Floor Layer: Francois Ocampo MD OR Nursing Record - Main Temo n 05-04-2021 OR Nursing Record - Main OR OR Nursing Record - Main OR Summary Primary Physician: HARINDER LOGAN MD Finalized Date/Time: 12/13/20 08:17:53 Pt. Name: LIZBETH MANRIQUEZ /Sex: 1990 Female Med Rec #: [id number] Physician: Financial #: [id number] Pt. Type: A Room/Bed: / Admit/Disch: 12/13/20 05:59:00 - Institution: Transport to OR - Main OR Entry 1 By Tiffanie Thomas RN, Date/Time Leaving 12/13/20 07:33:00 Janki Santiago RN, Devon Harp PA-C, Desmond Siderails Up? Yes Last Modified By: Janki Santiago RN 12/13/20 07:40:14 Case Times - Main OR Entry 1 Patient In Room Time 12/13/20 07:34:00 Out Room Time 12/13/20 07:59:00 Anesthesia Facility Times Induction Time 12/13/20 07:35:00 Stop Time 12/13/20 07:58:00 [place] Protocol Yes Completed Surgery Start Time 12/13/20 07:50:00 Stop Time 12/13/20 07:56:00 Last Modified By: Janki Santiago RN 12/13/20 07:59:59 Surgical Procedures - Main OR Entry 1 Procedure Suction D and C Modifiers None Surgeon Procedure SUCTION DILATION AND Primary Procedure Yes Description CURETTAGE Primary Surgeon HARINDER LOGAN MD Start 12/13/20 07:50:00 Stop 12/13/20 07:56:00 Anesthesia Type General Surgical Service SN - Obstetric/Gynecology Last Modified By: Janki Santiago RN 12/13/20 07:59:59 Case Attendance - Main OR Entry 1 Entry 2 Entry 3 Case Attendee VON COMER, HARINDER JOINER MD, Desmond Pandya PA-C Role Performed Surgeon Primary Anesthesiologist Primary JOSEE Primary Time In 12/13/20 07:34:00 12/13/20 07:34:00 12/13/20 07:34:00 Time Out 12/13/20 07:59:00 12/13/20 07:59:00 12/13/20 07:59:00 Procedure Suction D and C(None) Suction D and C(None) Suction D and C(None) Last Modified By: Pamela RN, Janki Santiago RN, Janki Santiago RN, Janki 12/13/20 08:00:00 12/13/20 08:00:00 12/13/20 08:00:00 Entry 4 Entry 5 Entry 6 Case Attendee Division Director SURVEYOR, Sultana Martha JAMA, Tiffanie Santiago RN, Janki Role Performed Scrub Primary Marketing Operations Consultant Primary Marketing Operations Consultant [place] Time In 12/13/20 07:34:00 12/13/20 07:34:00 12/13/20 07:34:00 Time Out 12/13/20 07:59:00 12/13/20 07:59:00 12/13/20 07:59:00 Procedure Suction D and C(None) Suction D and C(None) Suction D and C(None) Last Modified By: Pamela JAMA, Janki Santiago RN, Janki Morton RN 12/13/20 08:00:00 12/13/20 08:00:00 12/13/20 08:00:00 General Case Data - Main OR Entry 1 Case Information OR OR 05 Schedule Type Scheduled Case Level Level 4 Wound Class Clean-Contaminated Specialty SN - ASA Class 1 Obstetric/Gynecology Procedure History Yes Documented Diagnosis Preop Diagnosis BLIGHTED OVUM Postop Diagnosis BLIGHTED OVUM Last Modified By: Janki Santiago RN 12/13/20 07:42:25 Delays - Main OR Entry 1 Delay Reason No Delay Last Modified By: Janki Santiago RN 12/13/20 07:52:50 Patient Positioning - Main OR Entry 1 Procedure Suction D and C(None) Body Position Lithotomy Left Arm Position Extended on padded arm Right Arm Position Extended on padded arm board board Left Leg Position Secured in Stirrup Right Leg Position Secured in Stirrup Feet Uncrossed? Yes Press Points Checked Yes By MARISEL COMER, FRANCOIS, Positioning Devices Padded Armboard, VON COMER, Jaclyn PIZANO Candy Cane, Swasey RN, Janki, Briannaow under Head Katiuska TRIPP, Martha Logan RN, Tiffanie Last Modified By: Janki Santiago RN/04/21 07:53:10 Skin Prep - Main OR Entry 1 Procedure Suction D and C(None) Prep Area Perineal Prep Agents Betadine Solution By Desmond Harp PA-C Hair Removal Last Modified By: Janki Santiago RN 12/13/20 07:54:05 Counts Verification - Main OR Entry 1 Entry 2 Count Type Initial Final Closing Count Participants Division Director SURVEYOR, Abilio SURVEYOR, Pamela Gonzalez RN, Pamela Gonzalez RN, Janki Shearer Count Status Correct Correct Items Counted Sponges Sponges Surgeon Notified n/a Yes Closing Count Correct Last Modified By: Janki Santiago RN, RN, Jessica 12/13/20 08:08:47 12/13/20 08:08:47 Counts Action Taken - Main OR NOT APPLICABLE Entry 1 Surgeon Notified No Count Incorrect Last Modified By: Catheters, Drains, Tubes - Main OR NOT APPLICABLE Entry 1 Last Modified By: Medication Administration - Main OR NOT APPLICABLE Entry 1 Last Modified By: Cultures & Specimens - Main OR Entry 1 Specimens Taken Routine Body Site PRODUCTS OF CONCEPTION Last Modified By: Janki Santiago RN 12/13/20 08:13:29 Skin Assessment - Main OR Entry 1 Skin Integrity at Intact Skin Abnormality at No Incision Site: Incision Site: General/Overall WNL/INTACT Skin Integrity: Last Modified By: Janki Santiago RN 12/13/20 08:10:15 Surgical Irrigation - Main OR Entry 1 Irrigant Saline Last Modified By: Janki Santiago RN 12/13/20 08:10:20 Patient Care Devices - Main OR Entry 1 Equipment Type Suction D&C Machine Last Modified By: Janki Santiago RN 12/13/20 08:10:37 Dressing/Packi (more content not included)... Normal [facility] Operative Reporton Operative Report Patient: FARTUN MANRIQUEZ Age: 30 years Sex: Female : 1990 Associated Diagnoses: Missed ; Blighted ovum; 12 weeks gestation of Author: VON COMER, HARINDER Postoperative Information Post Operative Info: Procedure/ Case: suction d and c. Date/ Time: 12/13/2020 07:41:00 Preoperative Diagnosis: Missed - YSL25-TS O02.1, Medical, Blighted ovum - ULG66-QZ O02.0, Medical, 12 weeks gestation of - QAV98-JU Z3A.12, Medical. Postoperative Diagnosis: same. Performed by: HARINDER LOGAN MD. Estimated Blood Loss: 50 ml. Specimens Removed: pocs. Complications: None. Notes: pt understands risks and consents to procedure. pt had been given option of waiting for spont sab , or medical rx, or d and c and she wants suction d and c. pt taken to OR , given general anesthesia and prepped and draped in usual fashion in dorsal lithotomy position. time out done. exam under anesthesia, nl external genitalia, vagina and cervix nl. bimanual exam minimally enlarged uterus c/w just 7 wks sac even though 12 wks by lmp . cervix grasped wtih a single tooth tenaculum and cervix dilated to admit a 8 cm curved currette. suction currettage done X 2 , then gentle feel with smooth currrette. no further tissue obtained, one more pass with suction currette and was empty. no active bleeding . tenaculum removed and good hemostasis noted. bimanual reveals uterus firmed down nicely. ebl 30 cc. left to recover in good condition. . Normal [facility] PACU Phase I - Main ORon PACU Phase I - Main OR PACU Phase I - Main OR Summary Primary Physician: HARINDER LOGAN MD Finalized Date/Time: 12/13/20 08:39:11 Pt. Name: LIZBETH MANRIQUEZ/Sex: 1990 Female Med Rec #: [id number] Physician: Financial #: [id number] Pt. Type: A Room/Bed: / Admit/Disch: 12/13/20 05:59:00 - Institution: PACU I - Case Times - Main OR Entry 1 In PACU I 12/13/20 08:00:00 Ready for Transfer 12/13/20 08:39:00 Last Modified By: Parul Cantu RN 12/13/20 08:39:04 Finalized By: Parul Cantu RN Document Signatures Signed By: Parul Cantu RN 12/13/20 08:39 Parul Cantu RN 12/13/20 08:39 Parul Cantu RN 12/13/20 08:39 Parul Cantu RN 12/13/20 08:39 Normal [facility] PACU Phase II - Main ORon PACU Phase II - Main OR PACU Phase II - Main OR Summary Primary Physician: HARINDER LOGAN MD Finalized Date/Time: 12/13/20 08:41:49 Pt. Name: LIZBETH MANRIQUEZ/Sex: 1990 Female Med Rec #: [id number] Physician: Financial #: [id number] Pt. Type: A Room/Bed: / Admit/Disch: 12/13/20 05:59:00 - Institution: PACU II - Case Times - Main OR Entry 1 In PACU II 12/13/20 08:40:00 Ready for PACU II n/a Discharge Discharge from PACU 12/13/20 08:41:00 II Last Modified By: Parul Cantu RN 12/13/20 08:41:46 Finalized By: Parul Cantu RN Document Signatures Signed By: Parul Cantu RN 12/13/20 08:41 Parul Cantu RN 12/13/20 08:41 Normal [facility] Preop - Main ORon 12-13-2020 Preop - Main OR Preop - Main OR Summ aj Primary Physician: HARINDER LOGAN MD Finalized Date/Time: 12/13/20 06:39:34 Pt. Name: LIZBETH MANRIQUEZ/Sex: 1990 Female Med Rec #: [id number] Physician: Financial #: [id number] Pt. Type: A Room/Bed: / Admit/Disch: 12/13/20 05:59:00 - Institution: Preop - Case Times - Main OR Entry 1 Patient Arrival Time 12/13/20 06:07:00 Patient Ready for 12/13/20 06:39:00 Surgery Last Modified By: Dayana Farmer RN 12/13/20 06:39:33 Finalized By: Dayana Farmer RN Document Signatures Signed By: Dayana Farmer RN 12/13/20 06:39 Normal [facility] Phone Msgon 12-12-2020 Phone Msg - From: HARINDER LOGAN MD To: Alysa You; Sent: 12/12/2020 11:01:33 EDT Subject: neeeds suction d and c. i see the prev message sent without the patients name attached!> sorry. Added. Normal [facility] Phone Msg - From: HARINDER LOGAN MD To: Alysa You; Sent: 12/12/2020 11:02:32 EDT Subject: suctilon d and c. this week From: HARINDER LOGAN MD To: Alysa You; Sent: 12/10/2020 10:56:27 EDT Subject: schedule suction d and c danny she has a blighted ovum. and wants suciton d and c saturday or . ( i am off for a week after BUT i could come in and do it 7:30 saturday if thats the only available time ) but not after 0 . pt went to [facility] and had us that showed blighted ovum and was conclusive by size of sac. us done at [facility] had been inconclusive. we discussed options such as wait, do cyctoec for medical ab or d and c. she wants suction d and c . we discused procedure and risks and what to expect post op. she consents . From: Alysa You To: HARINDER LOGAN MD; Sent: 12/12/2020 12:00:47 EDT Subject: RE: nik valdez. this week Spoke with patient, okay for tomorrow, 12/13 @ 7:30am. Patient aware SW will contact her to register her, give her all the details where and what time to arrive, etc. Normal [facility] Phone Msgon 12-07-2020 Phone Msg - From: HARINDER LOGAN MD To: Chandni Moura MA; Sent: 12/07/2020 14:37:34 EDT Subject: us possible sab i spoke w pt. she has no bleeding. had us showed 5 wks sac, now has us that shows 6 5/7 wks sac w no pole. not read as blighted ovum. i discussed options and she would like to rept us in a week w [facility] at [facility]. so send over the req and the ultrasounds and hcgs to [facility] fax. faxed Normal [facility] Phone Msgon 11-22-2020 Phone Msg - From: Janet El To: Chandni Moura MA; Sent: 11/11/2020 14:21:19 EDT Subject: Ultrasound order needed OB patient called back and I read her the message regarding her HCG quant results. She will need an order to have an ultrasound done in 10 days. Patient is also aware to call the office if she is having any pain. She was happy to hear that she is 3 to 4 weeks . [phone] pt aware order in computer and number given to sched From: Hortensia Byrne To: Chandni Moura MA; Sent: 11/22/2020 10:19:03 EDT Subject: FW: Ultrasound order needed Patient called since she was trying to schedule this. Order has not been signed off on yet for the ultrasound. If you could please have Dr. Logan sign order. Patient would like a call when it's been done. From: Chandni Moura MA To: Eric Finn MAon; Sent: 11/22/2020 11:12:21 EDT Subject: FW: Ultrasound order needed orders signed Patient aware Normal [facility] US TV ECHO OBon 11-21-2020 US TV ECHO OB US TRANSVA GINAL CLINICAL STATEMENT: VIABILITY. TECHNOLOGIST NOTES: WHAT SYMPTOMS ARE YOU EXPERIENCING? - dating and viability COMPARISON: 11/08/2020 FINDINGS: Transvaginal sonographic examination of the pelvis shows the uterus measuring 7.7 x 5.0 x 3.8 cm in diameter. There is a hypoechoic focus within the anterior fundus measuring 0.9 x 0.9 x 0.5 cm in diameter, likely a leiomyoma. There is now a small gestational sac within the uterine fundus with a mean diameter of 0.8 cm, consistent with a gestational age of 5 weeks 4 days. There is no apparent yolk sac, pole, or heart pulsation at this time. The cervix measures 3.4 cm in length, and is closed. The right ovary measures 2.5 x 2.1 x 1.7 cm in diameter. The left ovary measures 3.1 x 1.9 x 1.6 cm in diameter. There are tiny follicular cysts within both ovaries. There was normal vascular flow within both ovaries, including color flow and Doppler imaging, with normal waveforms. There is no fluid in the cul-de-sac. IMPRESSION: Small intrauterine gestational sac of approximately 5 weeks 4 days size without yolk sac or pole at this time. A progress ultrasound study and serial hCG levels are recommended. Small uterine leiomyoma. Normal-appearing ovaries. Electronically signed by: Ji Murillo MD 11/21/2020 12:25 PM CDT Normal [facility] Comment on above: Order Comment: Order ed on Fin# [id number] Result Comment: Tech nologist: REGINA Dictated By: JI MURILLO MD Signed By: JI MURILLO MD Signed Out: 11/21/20 13:25:26 THIN PREP IMAGE SEND OUTon 0 11-14-2020 THIN PREP IMAGE SEND OUT See Report Normal [facility] Comment on above: Order Comment: Order ed on Fin# [id number] Performed By: #### C [id number] #### [facility] [address] [place] [address] Composition Floor Layer: Francois Ocampo MD HCG QUANTon 11-11-2020 HCG, Quant 674.0 mIU/mL Normal [facility] Comment on above: Result Comment: 0.2- 1 weeks 5 -50 mIU/ml 1 - 2 weeks 50-500 mIU/ml 2 - 3 weeks 100-5,000 mIU/ml 3 - 4 weeks 500-10,000 mIU/ml 4 - 5 weeks 1,000-50,000 mIU/ml 5 - 6 weeks 10,000-100,000 mIU/ml 6 - 8 weeks 15,000-200,000 mIU/ml 2 - 3 months 10,000-100,000 mIU/ml Performed By: #### 1 [id number] ####[facility] [id number] [place] [address] Medical Director: Francois Ocampo MD Phone Msgon 11-11-2020 Phone Msg - From: HARINDER LOGAN MD To: Chandni Moura MA; Sent: 11/11/2020 13:04:41 EDT Subject: she was supposed to have hcg drawn yest. its not in chart. did she go?? needs to go to same location as last draw. From: Chandni Moura MA To: HARINDER LOGAN MD; Sent: 11/11/2020 13:10:10 EDT Subject: RE: she was supposed to have hcg drawn yest. she couldn't go yesterday went today at 740am [facility] GP CHLAMon 11-10-2020 Genprobe Chlamydia Negative Normal [facility] Comment on above: Order Comment: Order ed on Fin# [id number] Result Comment: This Chlamydia assay is being performed via a second generation NAAT that utilizes target capture, carton marker machine mediated amplification and dual kenetic assay technologies. Performed By: #### 1 [id number] #### [facility] [address] [place] [address] Composition Floor Layer: Francois Ocampo MD GP GCon 11-10-2020 Genprobe GC Negative Normal [facility] Comment on above: Order Comment: Order ed on Fin# [id number] Result Comment: This Gonorrhoea assay is being performed via a second generation NAAT that utilizes target capture, carton marker machine mediated amplification and dual kenetic assay technologies. Performed By: #### 1 [id number], [id number] #### [facility] [address] [place] [address] Composition Floor Layer: Francois Ocampo MD US TV ECHO OBon 11-10-2020 US TV ECHO OB ADDENDUM #1 HARINDER LOGAN MD confirmed receipt of the results with [facility] staff. Electronically signed by: Reed Goodson MD 11/09/2020 10:46 PM CDT ORIGINAL REPORT PROCEDURE: US , Transvaginal CLINICAL INDICATION: The patient is 30 years old and is Female; VIABILITY TECHNIQUE: Real-time transvaginal obstetrical ultrasound of the maternal pelvis and a first trimester with image documentation. Transvaginal imaging was used for better evaluation of the fetus and adnexa. COMPARISON: No relevant prior studies available. FINDINGS: GESTATION: LMP is 09/12/2020. This corresponds to a gestational age of 8w1d. MARVA is 06/19/2021. There is NO gestational sac identified in the uterus. UTERUS/CERVIX: The uterus measures 7.7 x 4.3 x 5.4 cm. Endometrial stripe complex is mostly uniform but thickened 11 mm. Tiny uterine fibroid in the anterior intramural lower uterine body measuring 8 x 7 x 6 mm. OVARIES: Right ovary not visualized transvaginally or transabdominally. No RIGHT adnexal masses. Left ovary measures 3.6 x 2.5 x 2.4 cm. Normal color flow. FREE FLUID: There is trace free fluid in the cul-de-sac. IMPRESSION: NO intrauterine gestation identified. This may be secondary to the early age of the . However, ectopic is not excluded on the basis of this examination. Recommend correlation with serial beta hCG levels, followup ultrasonography and clinical examination as indicated. Trace free fluid identified. RIGHT ovary not identified. LEFT ovary is unremarkable sonographically. Electronically signed by: Reed Goodson MD 11/08/2020 12:08 PM CDT [facility] Comment on above: Order Comment: Order ed on Fin# [id number] Result Comment: Tech nologist: LH Dictated By: REED GOODSON MD Signed By: REED GOODSON MD Signed Out: 11/09/20 23:46:32 ABORHon 11-09-2020 ABORH CK Interp Positive [facility] Comment on above: Performed By: #### C D:[id number], CD:[id number] #### [facility] [address] [place] [address] Composition Floor Layer: Francois Ocampo MD ABORH Interpretation Positive [facility] Comment on above: Performed By: #### C D:[id number], CD:[id number] #### [facility] [address] [place] [address] Composition Floor Layer: Francois Ocampo MD Anti-A recheck 0 [facility] Comment on above: Performed By: #### C D:[id number], CD:[id number] #### [facility] [address] [place], [place] [id number] Composition Floor Layer: Francois Ocampo MD Anti-B recheck 4+ [facility] Comment on above: Performed By: #### C D:[id number], CD:[id number] #### [facility] [address] [place], [place] [id number] Composition Floor Layer: Francois Ocampo MD Anti-D recheck 3+ [facility] Comment on above: Performed By: #### C D:[id number], [id number] #### [facility] [address] [place] [address] Composition Floor Layer: Francois Ocampo MD Patient History Check No Previous Hx [facility] Comment on above: Performed By: #### C D:[id number], CD:[id number] #### [facility] [address] [place] [address] Composition Floor Layer: Francois Ocampo MD VS 0.8% a cells 4+ Normal [facility] Comment on above: Performed By: #### C D:[id number], [id number] #### [facility] [address] [place] [address] Composition Floor Layer: Francois Ocampo MD VS 0.8% b cells 0 [facility] Comment on above: Performed By: #### C D:[id number], [id number] #### [facility] [address] [place] [address] Composition Floor Layer: Francois Ocampo MD VS Anti-A Unit 0 Normal [facility] Comment on above: Performed By: #### C D:[id number], CD:[id number] #### [facility] [address] [place] [address] Composition Floor Layer: Francois Ocampo MD VS Anti-B Unit 4+ [facility] Comment on above: Performed By: #### C [id number], CD:[id number] #### [facility] Services [address] [place] [address] Composition Floor Layer: Francois Ocampo MD VS Anti-D Unit 4+ [facility] Comment on above: Performed By: #### C [id number], CD:[id number] #### [facility] Laboratory Services [address] [place] [address] Composition Floor Layer: Francois Ocampo MD ABSCon 11-09-2020 ABSC Final Interp Negative Normal [facility] Comment on above: Performed By: #### C [id number], CD:[id number] #### [facility] [address] [place], [place] [id number] Composition Floor Layer: Francois Ocampo MD Pt Hx check done? Yes Normal [facility] Comment on above: Performed By: #### C [id number], CD:[id number] #### [facility] Laboratory Services [address] [place], [place] [id number] Composition Floor Layer: Francois Ocampo MD VS SCI Gel 0 [facility] Comment on above: Performed By: #### C D:[id number], CD:[id number] #### [facility] Services [address] [place], [place] [id number] Composition Floor Layer: Francois Ocampo MD VS SCII Gel 0 [facility] Comment on above: Performed By: #### C [id number], CD:[id number] #### [facility] Services [address] [place], [place] [id number] Composition Floor Layer: Francois Ocampo MD HCG QUANTon 11-08-2020 HCG, Quant 209.0 mIU/mL [facility] Comment on above: Result Comment: 0.2- 1 weeks 5 -50 mIU/ml 1 - 2 weeks 50-500 mIU/ml 2 - 3 weeks 100-5,000 mIU/ml 3 - 4 weeks 500-10,000 mIU/ml 4 - 5 weeks 1,000-50,000 mIU/ml 5 - 6 weeks 10,000-100,000 mIU/ml 6 - 8 weeks 15,000-200,000 mIU/ml 2 - 3 months 10,000-100,000 mIU/ml Performed By: #### 1 [id number] ####[facility] [address] [place], [place] [id number] Medical Director: Francois Ocampo MD Phone Msgojessa 11-08-2020 Phone Msg - From: HARINDER LOGAN MD To: Zeny DOAN Chandni; Sent: 11/08/2020 13:47:51 EDT Subject: spoke w pt re us empty uterus. us empty uterus. pt is certain of lmp but sometimes cycles are q 35 to 45 days. should be 8 wks by her lmp if 28 day cycle. possible that she has too early iup. she only just did preg test 4 days ago. we discussed s/sx ectopic and to go to er if pain. will check quant hcg today and bl type and then rept in 48 hrs. ( Im off 11/10 so juancho, check results and text me). no bleeding. no pain at this time. Normal [facility] CBC AND DIFFERENTIALon 05-28 % AUTOMATED IMMATURE GRAN 0.3 % Normal 0.0 - 0.9 [facility] Comment on above: Result Comment: Jigna ture Granulocyte Count (IG) includes promyelocytes, myelocytes and metamyelocytes but does not include bands. Percent differential counts (%) should be interpreted in the context of the absolute cell counts (cells/L). Performed By: #### C BCDF #### [facility] [address] [place] [address] Basophils (Bld) [#/Vol] 0.02 10*3/uL Normal 0.00 - 0.10 [facility] Comment on above: Performed By: #### C BCDF #### [facility] [address] [place] [address] Basophils/100 WBC (Bld) 0.3 % Normal 0.0 - 2.0 [facility] Comment on above: Performed By: #### C BCDF #### [facility] [address] [place] [address] Eosinophils (Bld) [#/Vol] 0.07 10*3/uL Normal 0.00 - 0.70 [facility] Comment on above: Performed By: #### C BCDF #### [facility] [address] [place] [address] Eosinophils/100 WBC (Bld) 1.0 % Normal 0.0 - 6.0 [facility] Comment on above: Performed By: #### C BCDF #### [facility] [address] [place] [address] Erythrocyte distribution width (RBC) [Ratio] 11.8 % Normal 11.5 - 14.5 [facility] Comment on above: Performed By: #### C BCDF #### [facility] [address] [place] [address] Hematocrit (Bld) [Volume fraction] 45.7 % Normal 36.0 - 46.0 [facility] Comment on above: Performed By: #### C BCDF #### [facility] [address] [place] [address] Hemoglobin (Bld) [Mass/Vol] 14.5 g/dL Normal 12.0 - 16.0 [facility] Comment on above: Performed By: #### C BCDF #### [facility] [address] [place] [address] Lymphocytes (Bld) [#/Vol] 1.82 10*3/uL Normal 1.20 - 4.80 [facility] Comment on above: Performed By: #### C BCDF #### [facility] [address] [place] [address] Lymphocytes/100 WBC (Bld) 27.2 % Normal 13.0 - 44.0 [facility] Comment on above: Performed By: #### C BCDF #### [facility] [address] [place] [address] MCHC (RBC) [Mass/Vol] 31.7 g/dL Low 32.0 - 36.0 [facility] Comment on above: Performed By: #### C BCDF #### [facility] [address] [place] [address] MCV (RBC) [Entitic vol] 92 fL Normal 80 - 100 [facility] Comment on above: Performed By: #### C BCDF #### [facility] [address] [place] [address] Monocytes (Bld) [#/Vol] 0.49 10*3/uL Normal 0.10 - 1.00 [facility] Comment on above: Performed By: #### C BCDF #### [facility] [address] [place] [address] Monocytes/100 WBC (Bld) 7.3 % Normal 2.0 - 10.0 [facility] Comment on above: Performed By: #### C BCDF #### [facility] [address] [place] [address] Neutrophils (Bld) [#/Vol] 4.28 10*3/uL Normal 1.20 - 7.70 [facility] Comment on above: Performed By: #### C BCDF #### [facility] [address] [place] [address] Neutrophils/100 WBC (Bld) 63.9 % Normal 40.0 - 80.0 [facility] Comment on above: Performed By: #### C BCDF #### [facility] [address] [place] [address] NUCLEATED RBC 0.0 /100 WBC Normal 0.0-0.0 [facility] Comment on above: Performed By: #### C BCDF #### [facility] [address] [place] [address] Platelets (Bld) [#/Vol] 128 10*3/uL Low 150 - 450 [facility] Comment on above: Performed By: #### C BCDF #### [facility] [address] [place] [address] RBC 4.95 x10E12/L Normal 4.00 - 5.20 [facility] Comment on above: Performed By: #### C BCDF #### [facility] [address] [place] [address] WBC (Bld) [#/Vol] 6.7 10*3/uL Normal 4.4 - 11.3 [facility] Comment on above: Performed By: #### C BCDF #### [facility] [address] [place] [address] COMPREHENSIVE PANELon 2019 Albumin [Mass/Vol] 4.8 g/dL Normal 3.4 - 5.0 [facility] Comment on above: Performed By: #### C MP #### [facility] [address] [place] [address] ALP [Catalytic activity/Vol] 70 U/L Normal 33 - 110 [facility] Comment on above: Performed By: #### C MP #### [facility] [address] [place] [address] ALT [Catalytic activity/Vol] 14 U/L Normal 7 - 45 [facility] Comment on above: Result Comment: Mony ents treated with Sulfasalazine may generate falsely decreased results for ALT. Performed By: #### C MP #### [facility] [address] [place] [address] Anion gap [Moles/Vol] 16 mmol/L Normal 10 - 20 [facility] Comment on above: Performed By: #### C MP #### [facility] [address] [place] [address] AST [Catalytic activity/Vol] 35 U/L Normal 9 - 39 [facility] Comment on above: Result Comment: MODE RATE HEMOLYSIS DETECTED. The result may be falsely elevated due to hemolysis or other interferents. Clinical correlation is recommended. Repeat testing may be considered. Performed By: #### C MP #### [facility] [address] [place] [address] Bilirubin [Mass/Vol] 0.5 mg/dL Normal 0.0 - 1.2 [facility] Comment on above: Performed By: #### C MP #### [facility] [address] [place] [address] Calcium [Mass/Vol] 9.9 mg/dL Normal 8.6 - 10.6 [facility] Comment on above: Performed By: #### C MP #### [facility] [address] [place] [address] Chloride [Moles/Vol] 102 mmol/L Normal 98 - 107 [facility] Comment on above: Performed By: #### C MP #### [facility] [address] [place] [address] Creatinine [Mass/Vol] 0.62 mg/dL Normal 0.50 - 1.05 [facility] Comment on above: Performed By: #### C MP #### [facility] [address] [place] [address] GFR- AM. >60 Normal >60 [facility] Comment on above: Result Comment: CALC ULATIONS OF ESTIMATED GFR ARE PERFORMED USING THE MDRD STUDY EQUATION FOR THE IDMS-TRACEABLE CREATININE METHODS. CLIN CHEM 2007;53:766-72 Performed By: #### C MP #### [facility] [address] [place] [address] GFR-NON AM. >60 Normal >60 [facility] Comment on above: Performed By: #### C MP #### [facility] [address] [place] [address] Glucose [Mass/Vol] 92 mg/dL Normal 74 - 99 [facility] Comment on above: Performed By: #### C MP #### [facility] [address] [place] [address] HCO3 (Bld) [Moles/Vol] 23 mmol/L Normal 21 - 32 [facility] Comment on above: Performed By: #### C MP #### [facility] [address] [place] [address] Potassium [Moles/Vol] 5.7 mmol/L High 3.5 - 5.3 [facility] Comment on above: Result Comment: MODE RATE HEMOLYSIS DETECTED. The result may be falsely elevated due to hemolysis or other interferents. Clinical correlation is recommended. Repeat testing may be considered. Performed By: #### C MP #### [facility] [address] [place] [address] Protein [Mass/Vol] 7.7 g/dL Normal 6.4 - 8.2 [facility] Comment on above: Performed By: #### C MP #### [facility] [address] [place] [address] Sodium [Moles/Vol] 135 mmol/L Low 136 - 145 [facility] Comment on above: Performed By: #### C MP #### [facility] [address] [place] [address] Urea nitrogen [Mass/Vol] 11 mg/dL Normal 6 - 23 [facility] Comment on above: Performed By: #### C MP #### [facility] [address] [place] [address] LIPID PANEL (CORONARY RISK 2 )on 05-28-2020 Cholesterol [Mass/Vol] 235 mg/dL High 0 - 199 [facility] Comment on above: Result Comment: . AGE DESIRABLE BORDERLINE HIGH HIGH 0-19 Y 0 - 169 170 - 199 >/= 200 20-24 Y 0 - 189 190 - 224 >/= 225 >24 Y 0 - 199 200 - 239 >/= 240 All ranges are based on fasting samples. Specific therapeutic targets will vary based on patient-specific cardiac risk. . Pediatric guidelines reference:Pediatrics 2011, 128(S5). Adult guidelines reference: NCEP ATPIII Guidelines, DANAE 2001, 258:2486-97 . Venipuncture immediately after or during the administration of Metamizole may lead to falsely low results. Testing should be performed immediately prior to Metamizole dosing. Performed By: #### L IPID #### [facility] [address] [place] [address] Cholesterol in HDL [Mass/Vol] 72.3 mg/dL Normal [facility] Comment on above: Result Comment: . AGE VERY LOW LOW NORMAL HIGH 0-19 Y < 35 < 40 40-45 ---- 20-24 Y ---- < 40 >45 ---- >24 Y ---- < 40 40-60 >60 . Performed By: #### L IPID #### [facility] [address] [place] [address] Cholesterol in LDL [Mass/Vol] 148 mg/dL High 0 - 99 [facility] Comment on above: Result Comment: . NEAR BORD AGE DESIRABLE OPTIMAL HIGH HIGH VERY HIGH 0-19 Y 0 - 109 --- 110-129 >/= 130 ---- 20-24 Y 0 - 119 --- 120-159 >/= 160 ---- >24 Y 0 - 99 100-129 130-159 160-189 >/=190 . Performed By: #### L IPID #### [facility] [address] [place] [address] Cholesterol in VLDL [Mass/Vol] 14 mg/dL Normal 0 - 40 [facility] Comment on above: Performed By: #### L IPID #### [facility] [address] [place] [address] Cholesterol.total/ Cholesterol in HDL [Mass ratio] 3.3 {ratio} Normal [facility] Comment on above: Result Comment: REF VALUES DESIRABLE < 3.4 HIGH RISK > 5.0 Performed By: #### L IPID #### [facility] [address] [place] [address] Triglyceride [Mass/Vol] 72 mg/dL Normal 0 - 149 [facility] Comment on above: Result Comment: . AGE DESIRABLE BORDERLINE HIGH HIGH VERY HIGH 0 D-90 D 19 - 174 ---- ---- ---- 91 D- 9 Y 0 - 74 75 - 99 >/= 100 ---- 10-19 Y 0 - 89 90 - 129 >/= 130 ---- 20-24 Y 0 - 114 115 - 149 >/= 150 ---- >24 Y 0 - 149 150 - 199 200- 499 >/= 500 . Venipuncture immediately after or during the administration of Metamizole may lead to falsely low results. Testing should be performed immediately prior to Metamizole dosing. Performed By: #### L IPID #### [facility] [address] [place] [address] TSH WITH REFLEX TO FREE T4 I F ABNORMALon 05-28-2020 TSH Qn 1.39 m[IU]/L Normal 0.44 - 3.98 [facility] Comment on above: Result Comment: TSH testing is performed using different testing methodology at [facility] than at other [facility]. Direct result comparisons should only be made within the same method. Performed By: #### T HYDS #### [facility] [address] [place] [address] 19-49 Yearson 05-24-2020 HM 19-49 Years Diagnoses/Problems Health Maintenance/Risks Encounter for preventive health examination (V70.0) (Z00.00) Assessed Palpitations (785.1) (R00.2) Screening cholesterol level (V77.91) (Z13.220) Orders Health Maintenance, Palpitations Comprehensive Metabolic Panel; Status:Active; Requested for:24May2020; Perform:Lab Services - Lab To Draw (Blood Test); Due:22Aug2020;Ordered; For:Health Maintenance, Palpitations; Ordered By:Alexander Almaguer; Palpitations Complete Blood Count + Differential; Status:Active; Requested for:24May2020; Perform:Lab Services - Lab To Draw (Blood Test); Due:22Aug2020;Ordered; For:Palpitations; Ordered By:Alexander Almaguer; Education Material Provided for Patient; Status:Complete; Done: 24May2020 Ordered; For:Palpitations; Ordered By:Alexander Almaguer; TSH WITH REFLEX TO FREE T4 IF ABNORMAL; Status:Active; Requested for:24May2020; Perform:Lab Services - Lab To Draw (Blood Test); Due:22Aug2020;Ordered; For:Palpitations; Ordered By:Alexander Almaguer; Screening cholesterol level Lipid Panel; Status:Active; Requested for:24May2020; Perform:Lab Services - Lab To Draw (Blood Test); Due:22Aug2020;Ordered; For:Screening cholesterol level; Ordered By:Alexander Almaguer; History of Present Illness ESTABLISH CARE COMPLETE PHYSICAL EXAM need a check up c/o heart palpitations that she has noticed over the last month- feel my heartbeat in my chest, once a day M-F, stressful job, lasts moments-minutes, no associated symptoms like shortness or breath or diaphoresis sees fitting supervisor (Dr. Hylton)- periods normal/regular FH: colitis SH: 1 cup of coffee and 1 can of Coke Review of Systems General: no fever or night sweats, no change in weight Eyes: no vision disturbance ENT: no mouth lesions, no sore throat, and no dysphagia CV: no chest pain, no palpitations, no lower extremity edema Resp: no shortness of breath, no cough GI: no abdominal pain, no change in bowel habits : no urinary problems MSK: no arthralgias, myalgias, or back pain Skin; no rashes or new/changed skin lesions Neuro: no headaches Allergies Medication Latex Exam Gloves MISC Recorded By: Seven Almodovar; 05/24/2020 2:13:12 PM Current Meds Medication NameInstruction V-R Vitamin C TABS Vitals Vital Signs Recorded: 24May2020 02:26PM Cbjpjcouwzq72.6 F Heart Rate61 Xvrownlh350 Wacbhbohg02 Height5 ft 4 in Ylojnd473 lb BMI Nspaigbknn61.23 BSA Calculated1.72 O2 Nftglqyujd95 Physical Exam Alert, well-appearing. HEENT: OP clear. Sclera white. Pupils equal and round. EACs and TMs clear. Neck: Supple. No palpable masses. Thyroid was not enlarged. CVS: RRR, no murmurs. No peripheral edema. Respiratory: Normal inspirations and expirations. Clear and equal breath sounds. GI: Soft, nontender, no masses or hepatosplenomegaly. Results/Data EKG normal Signatures Electronically signed by : Alexander Almaguer MD; May 24 2020 11:05PM EST (Author) Normal [facility] PATHOLOGY REPORTon SURGICAL PATHOLOGY REPORT Normal [facility] Comment on above: Result Comment: DIAG NOSISCERVIX, BIOPSY:SQUAMOUS MUCOSA WITH NO EVIDENCE OF [id number]/08/01/2018 Electronically Signed Out by Azam Ahmadi M.D.NATURE OF SPECIMENCervixCLINICAL FINDINGSCervical high risk HPV test positiveICD-CM CODE(S)R87.810 Cervical High Risk Hpv Dna Test PositiveGROSS DESCRIPTIONThe container is labeled Lizbeth Manriquez, colposcopy. No otherclinical information is provided. The requisition states cervixwith adj vagina . Received in formalin are two vaz unorientedirregular fragments of soft tissue measuring 0.1 x 0.1 x 0.1 cm and0.2 x 0.1 x 0.1 cm. Filtered. One cassette. [facility] [place]/07/31/2018MICROSCOPIC DESCRIPTIONSections demonstrate fragments of squamous mucosa with no evidence ofdysplasia. The transformation zone is not present within the biopsysample.[facility] [address] [place] [address] 120[address]FLOK No. [id number] CAP Accreditation [place]. [id number] Director: Ra Cervantes M.D. HPV 16 AND 18/45 GENOTYPES B Y TMAon 07-16-2018 HPV 16 Negative Normal NEGATIVE [facility] HPV 18/45 Negative Normal NEGATIVE [facility] Comment on above: Result Comment: This test is for the qualitative detection of E6/E7 viralmessenger RNA of human papillomavirus (HPV) types 16 and 18/45in cervical specimens from women with APTIMA HPV Assay positiveresults. This assay is not intended for use as a stand-aloneassay. This assay should be performed only as a follow-up to theAPTIMA HPV ASSAY positive result and interpreted in conjunctionwith cervical cytology test results.[facility] [address] [place] [id number] No. [id number] CAP Accreditation No. [id number] Director: Ra Cervantes M.D. HPV-HR BY TMA, REFLEX 16 AND 18/45on 07-16-2018 HPV HIGH RISK Positive Abnormal NEGATIVE [facility] Comment on above: Result Comment: This test detects E6/E7 viral messenger RNA of the high-risk HPVtypes 16, 18, 31, 33, 35, 39, 45, 51, 52, 56, 58, 59, 66 and 68associated with cervical cancer and its precursor lesions.Cross-reactivity with low-risk HPV genotypes 26, 67, 70 and 82may occur. PAP, THIN PREP WITH IMAGINGo n 07-15-2018 PAP, THIN PREP WITH IMAGING Normal [facility] Comment on above: Result Comment: INTE RPRETATIONThin Prep Image-Guided Pap Test (Cervical) NEGATIVE FOR INTRAEPITHELIAL LESION /MALIGNANCY Satisfactory for evaluation (Absence/paucity ofendocervical/transformation zone component)xdc/07/15/2018The Pap test is a screening test, hence, subject to both falsenegative and false positive results as evidenced by published data.For most women who lack an endocervical component on their Pap, andare undergoing routine screening, literature supports follow-up byobtaining a repeat Pap test in 12 months. 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 no predominant organism present). GROWTH OF MIXED KEVIN NOTED MOST CONSISTENT WITH CONTAMINATION. (i.e.skin kevin/distal urethral kevin).[facility] [address] [place] [address] [id number] No. [id number] CAP Accreditation No. [id number] Director: Ra Cervantes M.D. ED NOTEon 06-25-2018 ED NOTE HNO ID: [id number] thor: Camille RussellRn) CONOR Roweervice: Emergency MedicineAuthor Type: Registered NurseType: ED NotesFiled: 06/25/2018 7:43 AMNote Text: Pt given discharge instructions and 2 prescriptions for Pyridium andMacrobid. Pt verbalized understanding. AMbulatory to [facility] with steadygait. Normal [facility] ED NOTE HNO ID: [id number] thor: Camille Nunn) CONOR Roweervice: Emergency MedicineAuthor Type: Registered NurseType: ED NotesFiled: 06/25/2018 7:42 AMNote Text: Patient informed: the name of medication, why we are giving it, possibleside effects, what they may expect to feel, and was offered a chance toask questions, prior to the administration of Pyridium and Macrobid. Normal [facility] ED NOTE HNO ID: [id number] thor: Camille Nunn) CONOR Roweervice: Emergency MedicineAuthor Type: Registered NurseType: ED NotesFiled: 06/25/2018 7:18 AMNote Text: Pt ambulatory to to provide urine sample. Voids dark israel coloredurine. Specimen obtained and sent to lab. Normal [facility] ED NOTE HNO ID: [id number] Author: Alessandra RussellRn) Jerel RN Service: Emergency Medicine Author Type: Registered Nurse Type: ED Notes Filed: 06/25/2018 6:52 AM Note Text: Patient states she feels pressure in her lower pelvic/abdominal. Normal [facility] ED PROV NOTEon 06-25-2018 Protein mass conc HNO ID: [id number] thor: Flaqutia Cortes Jr., MDService: Emergency MedicineAuthor Type: PhysicianType: ED Provider NotesFiled: 06/25/2018 7:37 AMNote Text:ED Provider NotePatient Name: Lizbeth ManriquezMRN: [id number] DATE: 06/25/18HistoryPatient presents with:UTI: low abd ptressure with urination / denies bleeding / denies prenancyPatient presents with suprapubic pressure, urgency and frequency. Shedenies any dysuria. She has no back pain. She has no nausea or vomiting. She has no diarrhea. She has no vaginal discharge. She feels like herbladder or uterus is falling out. She denies any fever, chills or nightsweats. Discomfort is moderate in severity. There is no exacerbating orremitting factors.PAST MEDICAL HISTORYDiagnosis Date- HPV (human papilloma virus) infectionPAST SURGICAL HISTORYProcedure Laterality Date- NONEFAMILY HISTORYProblem Relation Age of Onset- Breast Cancer Paternal GrandmotherSocial HistorySocial History Main Topics- Smoking status: Never Smoker- Smokeless tobacco: Never Used- Alcohol use No Comment: occ.- Drug use: No- Sexual activity: Yes control/ protection: None, CondomALLERGIESNo Known AllergiesReview of SystemsAll other systems reviewed and are negative.Physical ExamBP 122/70 Pulse 92 Temp (Src) 98.1 (Oral) Resp 16 Ht 5' 3 (1.60m) Wt 140 lb (63.5kg) SpO2 99% LMP 06/16/2018 BMI 24.81 kg/(m2).Physical ExamConstitutional: She is oriented to person, place, and time. She appearswell-developed and well-nourished.HENT:Head: Normocephalic and atraumatic.Right Ear: External ear normal.Left Ear: External ear normal.Nose: Nose normal.Mouth/Throat: Oropharynx is clear and moist.Eyes: Pupils are equal, round, and reactive to light. Conjunctivae and EOMare normal.Neck: Normal range of motion. Neck supple.Cardiovascular: Normal rate, regular rhythm, normal heart sounds andintact distal pulses.Pulmonary/Chest: Effort normal and breath sounds normal. She has nowheezes. She has no rales.Abdominal: Soft. Bowel sounds are normal. There is no tenderness. There isno rebound and no guarding.mild suprapubic discomfort on palpation. No CVA tenderness.Genitourinary: Vagina normal and uterus normal. No vaginal dischargefound.Genitourin aj Comments: no pain on bimanual exam. No discharge. Normalexam.Musculoskeleta l: Normal range of motion. She exhibits no edema ortenderness.2+ dorsalis pulses bilaterallyNeurological: She is alert and oriented to person, place, and time. Shehas normal reflexes.Skin: Skin is warm and dry.Psychiatric: She has a normal mood and affect.Nursing note and vitals reviewed.Diagnostic TestingED Labs Ordered and Reviewed - No data to displayProceduresED Course / Clinical ImpressionClinical Impressions as of Jun 25 0735CystitisMDM / Disposition / PlanUrinalysis is essentially normal. Urine hCG is negative. Patient neverhad symptoms like this before. Given this the first time presume a falsenegative urinalysis at this time she'll be placed on Pyridium andMacrobid. If he is not getting better she'll need follow-up with Dr.Regina León. I did add on a gonorrhea and chlamydia PCR probe as well.She has a nontender abdomen and nontender pelvic exam.Discharge in stable conditionSIGNATURE: Flaquita Cortes JR, [place] David Cortes Jr., MD06/25/18 0737 Normal [facility] Vital Signs Date Time Vital Sign Value Performing Clinician Facility 01-17-2024 16:20-040 Body height 160 cm Alexander Almaguer MD Work Phone: [facility] 01-17-2024 16:20-0400 Body mass index (BMI) [Ratio] 29.41 kg/m2 Alexander Almaguer MD Work Phone: [facility] 01-17-2024 16:20-040 Body temperature 98.4 [degF] Alexander Almaguer MD Work Phone: [facility] 01-17-2024 16:20-0400 Body weight 75.3 kg Alexander Almaguer MD Work Phone: [facility] 01-17-2024 16:20-0400 Diastolic blood pressure 72 mm[Hg] Alexander Almaguer MD Work Phone: [facility] 01-17-2024 16:20-0400 Heart rate 80 /min Alexander Almaguer MD Work Phone: [facility] 01-17-2024 16:20-0400 SaO2% (BldA) [Mass fraction] 97 % Alexander Almaguer MD Work Phone: [facility] 01-17-2024 16:20-0400 Systolic blood pressure 120 mm[Hg] Alexander Almaguer MD Work Phone: [facility] 09-04-2022 12:34-0500 Body height 160 cm Margie Rothman STICKER ON.DIGITAL ASSOCIATE Work Phone: [facility] 09-04-2022 12:34-0500 Body temperature 97.81 [degF] Margie Rothman STICKER ON.DIGITAL ASSOCIATE Work Phone: [facility] 09-04-2022 12:34-0500 Body weight 82.56 kg Margie Rothman STICKER ON.DIGITAL ASSOCIATE Work Phone: [facility] 09-04-2022 12:34-0500 Diastolic blood pressure 75 mm[Hg] Margie Rothman STICKER ON.DIGITAL ASSOCIATE Work Phone: [facility] 09-04-2022 12:34-0500 Heart rate 76 /min Margie Rothman STICKER ON.DIGITAL ASSOCIATE Work Phone: [facility] 09-04-2022 12:34-0500 Respiratory rate 18 /min Margie Rothman STICKER ON.DIGITAL ASSOCIATE Work Phone: [facility] 09-04-2022 12:34-0500 SaO2% (BldA) [Mass fraction] 97 % Margie Rothman STICKER ON.DIGITAL ASSOCIATE Work Phone: [facility] 09-04-2022 12:34-0500 Systolic blood pressure 114 mm[Hg] Margie Rothman STICKER ON.DIGITAL ASSOCIATE Work Phone: [facility] Encounters Encounter Date Encounter Type Care Provider Facility Start: 02-08-2024 End: [facility] Start: 02-08-2024 End: 02-08-2024 Encounter for general adult medical examination without abnormal findings [facility] Start: 01-17-2024 End: 01-17-2024 ambulatory [facility] Start: 01-17-2024 End: 01-17-2024 Encounter for general adult medical examination without abnormal findings [facility] Start: 01-17-2024 End: 01-17-2024 Patient encounter status Alexander Almaguer MD Work Phone: [facility] Work Phone: Start: 01-17-2024 End: 01-17-2024 Periodic preventive med est patient 18-39 yrs Alexander Almaguer MD Work Phone: [facility] Comment on above: Health maintenance e xamination (Primary Dx); Mixed hyperlipidemia Start: 09-04-2022 End: 09-04-2022 Patient encounter procedure Margie Rothman APRN.CNP Work Phone: [facility] Comment on above: Eustachian tube dysf unction, bilateral (Primary Dx) Start: 06-25-2018 End: 06-25-2018 Emergency department patient visit FLAQUITA CORTES [facility] Procedures Date Procedure Procedure Detail Performing Clinician Start: 05-28-2020 Lipid 1996 panel - S james or Plasma Alexander Almaguer MD Work Phone: Plan of Treatment Date Care Activity Detail Author Start: 2042 Zoster Vaccines (1 o f 2) Zoster Vaccines (1 of 2) [facility] Start: 03-14-2032 DTaP/Tdap/Td Vaccine s (2 - Td or Tdap) DTaP/Tdap/Td Vaccines (2 - Td or Tdap) [facility] Start: 05-28-2025 Lipid panel Lipid Panel [facility] Start: 01-17-2025 Yearly Adult Physical Yearly Adult P hysical [facility] Start: 04-12-2024 Influenza vaccination Influenz a Vaccine (Season Ended) [facility] Start: 01-17-2024 End: 01-16-2025 CBC W Auto Differential panel - Blood CBC and Auto Differential Lab Routine Health maintenance examination Expected: 01/17/2024 (Approximate), Expires: 01/16/2025 [facility] Service Area Work Phone: Comment on above: Expected: 01/17/2024 (Approximate), Expires: 01/16/2025 Start: 01-17-2024 End: 01-16-2025 Comprehensive metabolic 2000 panel - Serum or Plasma Comprehensive Metabolic Panel Lab Routine Health maintenance examination Expected: 01/17/2024 (Approximate), Expires: 01/16/2025 [facility] Work Phone: Comment on above: Expected: 01/17/2024 (Approximate), Expires: 01/16/2025 Start: 01-17-2024 End: 01-16-2025 Lipid 1996 panel - Serum or Plasma Lipid Panel Lab Routine Mixed hyperlipidemia Expected: 01/17/2024 (Approximate), Expires: 01/16/2025 [facility] Work Phone: Comment on above: Expected: 01/17/2024 (Approximate), Expires: 01/16/2025 Start: 01-17-2024 End: 01-16-2025 TSH with reflex to Free T4 if abnormal TSH with reflex to Free T4 if abnormal Lab Routine Health maintenance examination Expected: 01/17/2024 (Approximate), Expires: 01/16/2025 [facility] Work Phone: Comment on above: Expected: 01/17/2024 (Approximate), Expires: 01/16/2025 Start: 04-12-2023 COVID-19 Vaccine ( season) COVID-19 Vaccine ( season) [facility] Start: 2022 HPV TESTING HPV TESTING [facility] Start: 08-12-2022 DEPRESSION ASSESSMENT DEPRESSION ASS ESSMENT [facility] Start: 04-12-2022 Influenza vaccination INFLUENZA (#1) [facility] Start: 2013 PAP TESTING PAP TESTING [facility] Start: 2013 Screening for malign ant neoplasm of cervix [facility] Start: 2011 Hepatitis B Vaccines (1 of 3 - 19+ 3-dose series) Hepatitis B Vaccines (1 of 3 - 19+ 3-dose series) [facility] Start: 2011 Urine microalbumin profile DTAP,TDAP,TD (1 - Tdap) [facility] Start: 2010 HEPATITIS C SCREENING HEPATITIS C [facility] Start: 2010 Hepatitis C screening Hepatitis C [facility] Start: 2010 HIV SCREENING HIV SCREENING [facility] Start: 2005 Varicella vaccination Varicell a Vaccines (1 of 2 - 13+ 2-dose series) [facility] Start: 1993 MMR Vaccines (1 of 1 - Standard series) MMR Vaccines (1 of 1 - Standard series) [facility] Start: 02-26-1993 COVID-19 VACCINE (#1) COVID-19 VACCI NE (#1) [facility] Start: 1992 HEPATITIS B (1 of 3 - 3-dose series) HEPATITIS B (1 of 3 - 3-dose series) [facility] Start: 1992 HIV screening HIV Screening [facility] Payers Date Payer Category Payer Unknown [id number] 2019 Unknown [id number] 1990 Unknown [id number] 1990 Unknown [id number] Social History Date Type Detail Facility Start: 09-04-2022 End: 01-17-2024 Tobacco smoking status NHIS Never smoked tobacco [facility] Start: 09-04-2022 End: 01-17-2024 Tobacco use and exposure Smokeless tobacco non-user [facility] Start: 09-04-2022 Alcohol intake Current non-dr mat linker of alcohol (finding) [facility] Start: 02-05-2017 Alcohol Comment occ. [facility] Start: 1990 Sex Assigned At Not on file [facility] Start: 01-17-2024 Alcoholic beverage intake Defer [facility] Work Phone: Start: 01-17-2024 History of Social function [facility] Work Phone: Start: 01-17-2024 Tobacco use panel [facility] Work Phone: Start: 01-07-2024 End: 01-17-2024 Exposure to SARS-CoV-2 (event) Not sure [facility] NEGATED: Highlighted rowStart: NINF History of tobacco use Passive smoker [facility] Work Phone: History of Present illness Narrative 01-17-2024 Alexander Almaguer MD - 01/17/2024 4:00 PM EDT Note Date & Type Note Facility 01-17-2024 History of Present illness Narrative Subjective Patient ID: Lizbeth Mathias is a 33 y.o. female who presents for Well Woman Exam (EP. Here for WWE. No PAP). HPI Feels well, no specific complaints or concerns today. Has fitting supervisor doctor- pt reports she is utd, has normal periods Review of Systems General: no fever or night sweats, no change in weight Eyes: no vision disturbance ENT: no mouth lesions, no sore throat, and no dysphagia CV: no chest pain, no palpitations Resp: no shortness of breath, no cough GI: no abdominal pain, no change in bowel habits : no urinary problems MSK: no arthralgias, myalgias, or back pain Skin; no rashes or new/changed skin lesions- sees ultrasound technician for skin screening Neuro: no headaches Objective BP 120/72 Pulse 80 Temp 36.9 C (98.4 F) (Oral) Ht 1.6 m (5' 3 ) Wt 75.3 kg (166 lb) SpO2 97% BMI 29.41 kg/m Physical Exam Appears well. HEENT: OP clear. Sclera white. PERRL. EACs and TMs clear. Neck: supple, no masses, or lymphadenopathy. No thyromegaly. CVS: RRR. No murmurs. Lungs: clear with normal inspirations and expirations. Breasts: Symmetrical, no masses, no skin retraction or dimpling. No nipple discharge. No axillary nodes. Abd: soft, NT, no masses or HSM. Skin: No suspicious lesions. Assessment/Plan Diagnoses and all orders for this visit: Health maintenance examination - CBC and Auto Differential; Future - Comprehensive Metabolic Panel; Future - TSH with reflex to Free T4 if abnormal; Future Mixed hyperlipidemia - Lipid Panel; Future Discussed following low cholesterol diet Alexander Almaguer MD Family Medicine [facility] documented in this encounter [facility] Work Phone: History of Present illness Narrative 09-04-2022 Margie Rothman APRN.[facility] - 09/04/2022 12:33 PM EST Note Date & Type Note Facility 09-04-2022 History of Presen t illness Narrative This note was created using [employer]. Subjective Lizbeth Mathias is a 32 year old female. HPI by patient: Lizbeth Mathias is a 32 year old presenting to the office with the complaint of bilateral ear issues. Started over the weekend. Associated symptoms include ringing or buzzing of the left ear and difficulty hearing from the right- isn't sure which ear for sure though. Has chronic allergy symptoms- runny nose. Denies sick symptoms. OTC Flonase 1 dose. No antibiotic use in the last 60 days. ALLERGIES No Known Allergies Family History Reviewed Including Cardiac Diseases, Psychiatric Diseases, & Substance Abuse Problem: Breast Cancer Relation: Paternal Grandmother Age of Onset: (Not Specified) Social History Tobacco Use Smoking status: Never Smokeless tobacco: Never Alcohol use: No Comment: occ. Drug use: No Active Ambulatory Problems Papanicolaou smear of cervix with positive high risk human papilloma virus (HPV) test Date Noted: 02/05/2017 Resolved Ambulatory Problems No Resolved Ambulatory Problems Past Medical History: No date: HPV (human papilloma virus) infection Review of Systems Constitutional: Negative. HENT: Positive for congestion, rhinorrhea and tinnitus. Eyes: Negative. Respiratory: Negative. Cardiovascular: Negative. Gastrointestinal: Negative. Endocrine: Negative. Genitourinary: Negative. Musculoskeletal: Negative. Skin: Negative. Neurological: Negative. Hematological: Negative. Objective BP 114/75 Pulse 76 Temp 36.6 C (97.8 F) (Tympanic) Resp 18 Ht 160 cm (5' 3 ) Wt 82.6 kg (182 lb) LMP 06/16/2018 (Exact Date) SpO2 97% BMI 32.24 kg/m Physical Exam Vitals reviewed. Constitutional: General: She is not in acute distress. Appearance: She is not ill-appearing, toxic-appearing or diaphoretic. HENT: Head: Normocephalic and atraumatic. Right Ear: Tympanic membrane, ear canal and external ear normal. Left Ear: Tympanic membrane, ear canal and external ear normal. Nose: No rhinorrhea. Right Sinus: Maxillary sinus tenderness and frontal sinus tenderness present. Left Sinus: Maxillary sinus tenderness and frontal sinus tenderness present. Mouth/Throat: Mouth: Mucous membranes are moist. Pharynx: Oropharynx is clear. No oropharyngeal exudate or posterior oropharyngeal erythema. Cardiovascular: Rate and Rhythm: Normal rate and regular rhythm. Pulmonary: Effort: Pulmonary effort is normal. Breath sounds: Normal breath sounds. Lymphadenopathy: Head: Right side of head: No submandibular or tonsillar adenopathy. Left side of head: No submandibular or tonsillar adenopathy. Cervical: No cervical adenopathy. Psychiatric: Behavior: Behavior is cooperative. Assessment and Plan (H69.83) Eustachian tube dysfunction, bilateral (primary encounter diagnosis) Plan: predniSONE (DELTASONE) 20 mg tablet, fluticasone (FLONASE ALLERGY RELIEF) 50 mcg/actuation nasal spray, fexofenadine (ZECHARIAH ALLERGY) 180 mg tablet Education on viral vs bacterial infections. Most viral infections will last 10 days, sometimes 14. It is possible to have back to back viral infections. An antibiotic will not treat a virus. -Bilateral TMs are healthy, no cerumen on exam. Will treat for Eustachian tube dysfunction. Steroids with food. -Drink lots of fluids and get plenty of rest. -Vaporizers, cool mist humidifiers, warm showers, and warm fluids help open respiratory and sinus passages. Clean humidifiers daily. -OTC tylenol as directed on the bottle. -Saline nasal spray as needed. Flonase twice daily can help reduce inflammation through the sinus cavities. -Make follow up with primary care for monitoring and resolution in symptoms. -Signs that warrant an ER evaluation: Sudden change/worsening in condition, lethargy, signs of dehydration, fever greater than 102 F that is not responding to Tylenol or ibuprofen (Motrin, Advil), drooling, difficulty swallowing, difficulty breathing, shortness of breath, chest pain, evidence of airway compromise (tripod position, neck extension, retractions), seizures, changes in mental status, or other concerns. The patient will pursue further outpatient evaluation with the primary care physician or another Urgent Care/Express Care as outlined in the after visit summary. The patient is agreeable to this plan of care and follow-up instructions have been explained in detail. The patient has received these instructions in written format and have expressed an understanding of the after visit summary. Medical Decision Making: Level: 3 - Low I spent a total of 20 minutes on the date of the service which included preparing to see the patient, [id number] patient care, completing clinical documentation, obtaining and/or reviewing separately obtained history, performing a medically appropriate examination, counseling and educating the patient/family/caregiver, and ordering medications, tests, or procedures. documented in this encounter [facility] Instructions 09-04-2022 Patient Instructions Note Date & Type Note Facility 09-04-2022 Instructions Margie Rothman APRN.CNP - 09/04/2022 12:33 PM EST (H69.83) Eustachian tube dysfunction, bilateral (primary encounter diagnosis) Plan: predniSONE (DELTASONE) 20 mg tablet, fluticasone (FLONASE ALLERGY RELIEF) 50 mcg/actuation nasal spray, fexofenadine (ZECHARIAH ALLERGY) 180 mg tablet Education on viral vs bacterial infections. Most viral infections will last 10 days, sometimes 14. It is possible to have back to back viral infections. An antibiotic will not treat a virus. -Bilateral TMs are healthy, no cerumen on exam. Will treat for Eustachian tube dysfunction. Steroids with food. -Drink lots of fluids and get plenty of rest. -Vaporizers, cool mist humidifiers, warm showers, and warm fluids help open respiratory and sinus passages. Clean humidifiers daily. -OTC tylenol as directed on the bottle. -Saline nasal spray as needed. Flonase twice daily can help reduce inflammation through the sinus cavities. -Make follow up with primary care for monitoring and resolution in symptoms. -Signs that warrant an ER evaluation: Sudden change/worsening in condition, lethargy, signs of dehydration, fever greater than 102 F that is not responding to Tylenol or ibuprofen (Motrin, Advil), drooling, difficulty swallowing, difficulty breathing, shortness of breath, chest pain, evidence of airway compromise (tripod position, neck extension, retractions), seizures, changes in mental status, or other concerns. documented in this encounter [facility] Clinical Note 12-13-2020 Note Date & Type Note Facility 12-13-2020 Note [facility] Adult Home Going Instructions Following General or MAC Anesthesia After surgery you will be allowed to go home when you are awake, stable, taking fluids well, and without complications. The anesthesia medications used during surgery may cause you to feel dizzy, weak, or drowsy for up to 24 hours. For your safety, during the first 24 hours following an anesthetic: ? Have a responsible adult with you ? DO NOT drive a car, operate machinery, or use power tools ? DO NOT take public transportation if you are alone ? DO NOT drink alcohol, including beer or wine ? DO NOT sign important papers or make important decisions ? DO NOT take medication that has not been prescribed by your care provider ? Only take felb-ktu-thnrkac or prescription medications as directed ? Slowly resume diet ? Activity as directed by your surgeon ? Use extra care climbing stairs or walking with crutches If you have questions or problems that seem to be related to the anesthetic, call the hospital at [phone] and ask for the QUARRY EQUIPMENT OPERATOR electrotype finisher or anesthesiologist. Thank you for the privilege and opportunity to participate in your care. We wish you good health, Your Anesthesia Team IF AN EMERGENCY DEVELOPS AND YOU ARE UNABLE TO REACH YOUR DOCTOR, GO TO THE NEAREST EMERGENCY DEPARTMENT OR CALL 911. SEEK IMMEDIATE MEDICAL CARE IF YOU: ? Develop a rash ? Have difficulty breathing ? Have chest pain ? Think you are having an allergic reaction WHEN TO CALL YOUR SURGEON: ? If you have questions about your operation ? Instructions regarding wound care ? Your pain is not effectively managed ? If you have signs of infection: ? Fever of 101? Fahrenheit (38? Celsius) or greater and/ or chills ? Increased heat or redness at incision site ? Increased swelling at incision site ? Foul-smelling drainage from incision site. Rev: __14 Post-Op D&C and Hysteroscopy Instructions Dr. Arteaga, Dr. Guajardo, Dr. Bettie Sood, Dr. Vines, Dr. Giraldo?[place] [phone] ? Appointment: Call soon to schedule a follow-up appointment in 2 weeks. ? Post-Op Care: You may have slight vaginal bleeding for 3 to 7 days after surgery, but up to 7-14 days in also normal. The bleeding should not be heavier than a normal period, and should taper off. Cramping is also normal. Use pads only. Do not douche. Do not use tampons until after your recheck appointment. ? Your next menstrual period may come on time, or it may be delayed up to 6 weeks. If the surgery was related, typically your first cycle will be 4-6 weeks after the surgery. This first post-operative period is often heavier/ more uncomfortable than usual. This is all normal. ? If you?ve had an endometrial ablation or hysteroscopic resection, the discharge may occur for 3-4 weeks. ? Showering: You may shower tomorrow. No baths or swimming for 2 weeks. ? Activity: Resume work and other normal activities as soon as you feel comfortable, usually in 24-48hrs. No sexual intercourse for 2 weeks after surgery. Drink plenty of water and eat light meals. ? Pain Control: Kaxz-jhv-ejhcvuw Tylenol or Ibuprofen may be used as directed for any discomfort. Drink plenty of fluids and take an ziag-sig-tygyvqo stool softener as needed to prevent/ treat constipation. ? If you have a fever of 100.4 or greater or chills, call the office immediately. ? If you have severe abdominal pain, heavy vaginal bleeding (saturating 1 pad in an hour), burning with urination, or unusual calf pain, call the office immediately. [facility] History and physical note 12-13-2020 Note Date & Type Note Facility 12-13-2020 Note Patient: FARTUN MANRIQUEZ Age: 30 years Sex: Female : 1990 Associated Diagnoses: None Author: GAIL GARLAND MD Basic Information Source of history: Self. Chief Complaint miscarriage History of Present Illness She presents for D and C Histories Past Medical History: none Procedure history: Atkins teeth in 2019 at 29 Years. Last pap - Abnormal - had colp, had bx f/u Q6 mon in the month of 06/2018 at 27 Years. 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 Sexual Sexually active: Yes. Uses condoms: Yes. Other contraceptive use: None. Substance Abuse Denies Substance Abuse Tobacco Never (less than 100 in lifetime) Tobacco Use:. Psychosocial History No active psychosocial history has been recorded. Health Status Include (Selected) Allergic Reactions (All) No Known Medication Allergies. Current medications: None Review of Systems Constitutional: Negative except as documented in history of present illness. Respiratory: Negative except as documented in history of present illness. Cardiovascular: Negative except as documented in history of present illness. Gastrointestinal: Negative except as documented in history of present illness. Musculoskeletal: Negative except as documented in history of present illness. Physical Examination General: Alert and oriented, No acute distress. Eye: Pupils are equal, round and reactive to light. HENT: Normocephalic. Neck: Supple, No carotid bruit. Respiratory: Lungs are clear to auscultation, Respirations are non-labored, Breath sounds are equal. Cardiovascular: Normal rate, Regular rhythm, No murmur. Gastrointestinal: Soft, Non-tender. Musculoskeletal: Normal range of motion. Neurologic: Alert. Psychiatric: Appropriate mood & affect. Impression and Plan miscarriage Plan: D and C [facility] Clinical Note 12-07-2020 Note Date & Type Note Facility 12-07-2020 Note HISTORY: VIABILITY PROCEDURE: US TRANSVAGINAL TECHNIQUE: Endovaginal images of the pelvis were obtained. Boyle scale imaging and Doppler imaging were performed. COMPARISON: November 21, 2020 ultrasound FINDINGS: Intrauterine gestational sac is again noted with a mean diameter of 18.3 mm, 6 weeks 5 days estimated age. No pole or yolk sac is identified. On the prior study, gestational sac and a mean diameter of 8 mm and also did not contain a yolk sac or pole in the prior exam. No evidence of hemorrhage. There is an incidental, 1.2 cm uterine fibroid. No adnexal mass or evidence of ovarian torsion. No free pelvic fluid. IMPRESSION: Intrauterine gestational sac is again identified and demonstrates interval growth from November 21, 2020, however there is no pole or yolk sac present. Electronically signed by: Bárbara Carranza MD 12/07/2020 7:25 AM CDT [facility] Comment on above: Order Comment: Order ed on Fin# [id number] Result Comment: Tech nologist: REGINA Dictated By: BÁRBARA CARRANZA MD Signed By: BÁRBARA CARRANZA MD Signed Out: 12/07/20 08:25:59 Evaluation note Note Date & Type Note Facility Evaluation note Diagnosis Eustachian tube dysfunction, bilateral- Primary documented in this encounter [facility] Evaluation note Note Date & Type Note Facility Evaluation note Diagnosis Health maintenance examination- Primary Unspecified general medical examination Mixed hyperlipidemia documented in this encounter [facility] Work Phone: Summary Purpose Family History No Family History Records FoundNo Family History Records FoundNo Family History Records FoundNo Family History Records FoundNo Family History Records FoundNo Family History Records FoundNo Family History Records FoundNo Family History Records FoundNo Family History Records Found Advance Directives No Advanced Directives Records FoundNo Advanced Directives Records FoundNo Advanced Directives Records FoundNo Advanced Directives Records FoundNo Advanced Directives Records FoundNo Advanced Directives Records FoundNo Advanced Directives Records FoundNo Advanced Directives Records FoundNo Advanced Directives Records Found Additional Source Comments INFORMATION SOURCE (unrecogn ized section and content) DATE CREATED AUTHOR 07/21/2018 [facility] DATE CREATED AUTHOR AUTHOR'S ORGANIZ ATION 07/21/2018 [facility] DATE CREATED AUTHOR AUTHOR'S ORGANIZ ATION 08/04/2018 [facility] DATE CREATED AUTHOR AUTHOR'S ORGANIZ ATION 09/02/2020 [employer] DATE CREATED AUTHOR AUTHOR'S ORGANIZ ATION 12/17/2020 [facility] DATE CREATED AUTHOR AUTHOR'S ORGANIZ ATION 12/19/2020 [facility] DATE CREATED AUTHOR AUTHOR'S ORGANIZ ATION 04/22/2023 [facility] DATE CREATED AUTHOR AUTHOR'S ORGANIZ ATION 01/19/2024 [facility] DATE CREATED AUTHOR AUTHOR'S ORGANIZ ATION 02/13/2024 [facility] Source Comments (unrecognize d section and content) In the event this informatio n is protected by the Federal Confidentiality of Alcohol and Drug Abuse Patient Records regulations: The Federal rules restrict any use of the information to criminally investigate or prosecute any alcohol or drug abuse patient.[facility] Reason for Visit (unrecogniz ed section and content) Reason Comments Ear Problem Not sure what ear is bothering her. Reason Comments Well Woman Exam EP. Here for WWE. No PAP Care Teams (unrecognized sec tion and content) Sweatband Shaper Relationship Specialty Start Date End Date Alexander Almaguer MD [address] [employer], [facility] [address] [place] [address] PCP - General Family Medicine 10/04/22 Alexander Almaguer MD [address] [employer], [facility] [address], [place] [id number] 10/04/22 FOR RECORDS PERTAINING TO PATIENTS WHO ARE OR HAVE BEEN ENROLLED IN A CHEMICAL DEPENDENCY/SUBSTANCEABUSE PROGRAM, SOME INFORMATION MAY BE OMITTED. This clinical summary was aggregated from multiple sources. Caution should be exercised in using it in the provision of clinical care. This summary normalizes information from multiple sources, and as a consequence, information in this document may materially change the coding, format and clinical context of patient data. In addition, data may be omitted in some cases. CLINICAL DECISIONS SHOULD BE BASED ON THE PRIMARY CLINICAL RECORDS. [facility] [employer] [facility]. provides no warranty or guarantee of the accuracy or completeness of information in this document.
== END | disposition home or self-care (01) ==
PROVIDERS: PCP General Practice; Referring Provider Obstetrics & Gynecology; Visit Provider Obstetrics & Gynecology
DX: Z36.9 Encounter for antenatal screening, unspecified (principal)
CPT/HCPCS: 36415

== ENCOUNTER → 2024-08-11 | Outpatient (CLI) | payer OTHER, SELFPAY ==
[2024-08-11 12:07] LABS: Absolute Lymphocyte Count 1.55 X10^3/uL (0.83-4.51); Absolute Neutrophil Count 6.6 X10^3/uL (2.0-7.7); Basophil# 0.02 X10^3/uL; Basophil% 0.2 % (0-1); Eosinophil# 0.08 X10^3/uL; Eosinophils% 0.9 % (0-5); Hematocrit 36.3 % (37-47); Lymphocyte # 1.55 X10^3/ul (0.83-4.51); Lymphocyte % 17.7 % (19-41); Mean Corp Hgb Conc 33.1 g/dL (32-36); Mean Corpuscular Hgb 28.5 pg (27.0-32.0); Mean Corpuscular Volume 86.2 fL (81-99); Mean Platelet Vol. 9.7 fl (6.2-12.0); Monocyte% 5.7 % (0-10); NRBC Flagged by Analyzer 0 % (0-5); Neutrophil # 6.55 X10^3/uL (2.7-7.7); Neutrophil % 74.9 % (47-70); Platelet Count 338 K/mm3 (150-450); RBC Distribution Width CV 12.9 % (11.6-14.6); RBC Distribution Width SD 39.8 fl (35.1-43.9); Red Blood Count 4.21 M/mm3 (4.2-5.4); White Blood Count 8.8 K/mm3 (4.4-11.0)
[2024-08-11 12:51] LABS: Glucose Challenge Gest 1H 50g 113 mg/dL (70-140)
[2024-08-11 13:05] LABS: HIV - WCH Non-Reactive (Nonreactive); Syphilis Antibodies Non-reactive
== END | disposition home or self-care (01) ==
LOC: BWCLAB 09:30
PROVIDERS: PCP General Practice; Referring Provider Registered Nurse; Visit Provider Registered Nurse
DX: Z34.92 Encounter for supervision of normal pregnancy, unspecified, second trimester (principal)
CPT/HCPCS: 36415; 82950; 85025; 86703; 86780

== ENCOUNTER → 2024-09-07 | Outpatient (CLI) | payer OTHER, SELFPAY | END | disposition home or self-care (01) | LOC: PSN 12:05 | PROVIDERS: PCP General Practice; Referring Provider Registered Nurse; Visit Provider Registered Nurse | DX: R00.2 Palpitations (principal) | CPT/HCPCS: 93225; 93226 ==

== ENCOUNTER 2024-09-19 05:01 | Emergency (ER) | payer OTHER, SELFPAY ==
[2024-09-19 05:03] VITALS: BP 116/80; PULSE 108; RESP 18; TEMP 36.8; O2SAT 100; BMI 33.3
[2024-09-19 05:06] VITALS: BP 116/80; PULSE 108; RESP 18; TEMP 36.8; O2SAT 100
[2024-09-19] MEDS: dexAMETHasone 10 MG/ML Vial PO.IVFORM (05:33)
[2024-09-19 05:40] VITALS: PULSE 108; RESP 16
[2024-09-19] MEDS: Ipratropium/Albuterol Sulfate 3 ML AMPUL.NEB INHALATION (05:40)
[2024-09-19 05:41] LABS: Mucous, Urine 0 SEEN /hpf (<or=2+); Squamous Epithelial Cells - UA 0 SEEN /hpf (5-10); White Blood Cells 0 SEEN /hpf (0-5)
[2024-09-19 05:42] LABS: Glucose, Dipstick Normal (Normal); Ketone-Dipstick 15 mg/dl (Negative); Leukocyte Esterase-Dipstick Negative /ul (Negative); Nitrite-Dipstick Negative (Negative); Occult Blood-Urine Negative /ul (Negative); Protein-Dipstick 15 mg/dl (Negative); Urine Bilirubin Dipstick Negative (Negative); Urine Urobilinogen Normal (Normal)
[2024-09-19 05:45] LABS: Color, Urine Yellow (Yellow); Urine Clarity Clear (Clear)
[2024-09-19 05:52] LABS: Bacteria 1+ /hpf (None Seen); Red Blood Cells-Urine 0 SEEN /hpf (0-5)
--- NOTE | 2024-09-19 06:22 | EX.ED.DYSGE1 ---
HPI History of Present Illness Chief Complaint: Cough Informant: patient and spouse/S.O. Narrative Narrative: Patient is a 34-year-old female who is roughly 34 weeks . She states that both her and her have been sick and tested positive for influenza A. She states she has been taking Tamiflu but despite this has had persistent symptoms. She states that her got over the infection within a few days but it has been almost 1 week and she feels like her symptoms are actually worsening. She has concerned this is affecting her child and therefore comes in for evaluation [facility] Medical History Vaginal delivery Hx of abnormal cervical Pap smear Home Medications ?Medication ?Instructions ?Recorded ?Last Taken ?Type lactobacillus combination no.4 3 3 cell PO DAILY GI 04/10/22 Unknown History billion cell capsule (Probiotic) azithromycin 250 mg tablet See Rx Instructions PO .COMPLEX #6 09/19/24 Unknown Rx (Zithromax Z-Oral) tabs oseltamivir 75 mg capsule 75 mg PO BID 09/19/24 Unknown History prednisone 20 mg tablet 40 mg (2 x 20 mg) PO DAILY 5 days 09/19/24 Unknown Rx #10 tabs vit no.95-ferrous 1 tab PO DAILY 09/19/24 Unknown History fumarate 28 mg-folic acid 800 mcg tablet ( Multivitamins) Allergy/AdvReac Type Severity Reaction Status Date / Time No Known Allergies Allergy Verified 09/24/24 09:29 Family History Father Crohn disease Grandfather Cancer Paternal Grandmother Colitis Paternal Breast cancer Paternal Mother Arthritis Mother was adopted Surgical History [place] teeth extracted H/O dilation and curettage Social History adopted: No household members: spouse and children number of children: 1 current occupational status: employed 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 [employer] current occupational exposures/hazards: No pets and animals: Yes (Avoid litterbox) pets and animals: cat(s) and dog(s) history of recent travel: No sexually active: Yes Smoking Status: Never smoker alcohol intake: current alcohol intake frequency: holidays/special occasions only details: Not while substance use type: does not use well-balanced diet: daily or most days caffeine: No eating out: 1-3 times/week during the past year weight has: remained stable what type of physical activity do you participate in: walking frequency: daily duration: 15-30 minutes/day althea/latter day: None seatbelt use: always do you feel safe at home: Yes 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 ROS ED Constitutional Constitutional ED: Reports chills, fever(s) and subjective Eyes Eyes: Denies change in vision ENT ENT ED: Reports rhinorrhea and sore throat Cardiovascular Cardiovascular: Denies chest pain Respiratory/Chest Respiratory/Chest: Reports cough and dyspnea Gastrointestinal Gastrointestinal: Denies abdominal pain, diarrhea, nausea or vomiting Genitourinary Genitourinary ED: Denies dysuria or hematuria Musculoskeletal Musculoskeletal: Reports myalgias; Denies back pain Integumentary Denies rash Neurologic Neurologic: Reports headache(s) Hematologic/Lymphatic Hematologic/Lymphatic: Denies easy bleeding or easy bruising Allergic/Immunologic Allergic/Immunologic ED: Denies mouth swelling or tongue swelling EXAM Physical Exam Const Vital Signs: 09/19/24 05:03 09/19/24 05:06 09/19/24 05:37 Temperature 98.3 F 98.3 F Temperature Source Oral Oral Pulse Rate 108 H 108 H Respiratory Rate 18 18 Respiratory Effort Normal Respiratory Depth Normal Respiratory Pattern Normal Blood Pressure 116/80 116/80 Blood Pressure Mean 92 92 Pulse Ox 100 100 Oxygen Delivery Method Room Air Room Air Room Air 09/19/24 05:40 Temperature Temperature Source Pulse Rate 108 H Respiratory Rate 16 Respiratory Effort Respiratory Depth Respiratory Pattern Normal Blood Pressure Blood Pressure Mean Pulse Ox Oxygen Delivery Method Positive well nourished and well developed General Appearance ED: well developed; Negative for pallor HEENT HEENT Narrative: Bilateral TMs are retracted but show no secondary findings to suggest infection Nasal mucosa is hyperemic and boggy There is cobblestoning noted in the posterior pharynx consistent with sinus drainage but no airway edema or compromise Eyes PERRL and EOMs intact bilaterally Neck supple and no JVD Neck Narrative: No nuchal rigidity or meningeal signs Resp normal respiratory effort Resp Narrative: Breath sounds are slightly diminished throughout with faint expiratory wheeze in the bilateral bases but no signs of respiratory distress Cardio regular rate and regular rhythm GI non-tender and non-distended GI Narrative: Abdomen is gravid with fundus consistent with reported gestational age Otherwise no pain with palpation or fluid wave noted Auscultation: normoactive bowel sounds Extremity normal to inspection Extremity Narrative: No asymmetric edema no pitting edema negative Homans' sign bilaterally Neuro oriented x3, CN's II-XII intact bilaterally and no sensory deficits noted Sensorium / Orientation: alert Motor Exam: strength 5/5 throughout Psych Mood & Affect: anxious Skin no rashes or lesions noted General Skin Exam: Negative for jaundice or pallor MDM MDM MDM Narrative Medical decision making narrative: Patient arrived to the ER with stable vitals and in no acute respiratory distress. She had concern that her symptoms are lasting longer than her 's and the fact that she was 34 weeks . At this time the patient has known influenza A so do not feel the need for repeat swab. There is a possibly that she has a secondary bacterial pneumonia on top of her influenza diagnosis making her symptoms worse. However based on her status I do not wish to perform a chest x-ray to confirm this. As she is not hypoxic or in respiratory distress even if the x-ray did show pneumonia it would not necessitate admission as she is hemodynamically stable. Therefore at this time I will hold off on the x-ray but with her reported worsening symptoms she will be placed on Zithromax which would cover for potential community-acquired or atypical pneumonia. Her urine sample showed +1 bacteria but no white cells and it was nitrate negative and she does not have urinary symptoms so I do not feel this is UTI but more so normal felicitas and there is no need for treatment of the urine. Therefore at this time as she is in no respiratory distress without hypoxia or signs of complication she does not need placed in the hospital and can simply be treated for her reported worsening influenza and is otherwise safe for discharge History & Record Review Discussion w/independent historian: Patient and Significant other Lab Data Attestation: I reviewed the patient's lab results. Labs: Laboratory Results - last 24 hr 09/19/24 05:32 Urine Color Yellow Urine Clarity Clear Urine pH 7.0 Ur Specific [place] 1.010 Urine Protein 15 H Urine Glucose (UA) Normal Urine Ketones 15 H Urine Occult Blood Negative Urine Nitrite Negative Urine Bilirubin Negative Urine Urobilinogen Normal Ur Leukocyte Esterase Negative Urine RBC 0 SEEN Urine WBC 0 SEEN Ur Squamous Epith Cells 0 SEEN Urine Bacteria 1+ Urine Mucus 0 SEEN Discharge Plan Triage Chief Complaint: Cough ED Provider: Gabe Toure Dx/Rx/DC Orders Clinical Impression: Influenza A, Instructions: ED Influenza (Adult) Prescriptions: New prednisone 20 mg tablet 40 mg PO DAILY 5 Days Qty: 10 0RF azithromycin [Zithromax Z-Oral] 250 mg tablet See Rx Instructions .ROUTE .COMPLEX Qty: 6 0RF Rx Instructions: For 250 mg dose pack: take 500 mg today (day 1), then 250 mg for 4 days (days 2-5) No Action Probiotic 3 billion cell Capsule 3 cell PO DAILY PNV cmb#95-ferrous fumarate-FA [ Multivitamins] 28 mg iron- 800 mcg tablet 1 tab PO DAILY oseltamivir 75 mg capsule 75 mg PO BID Primary Care Provider: Winnie Almaguer Referrals: Winnie Almaguer MD [Primary Care Provider] - Activity Restrictions/Additional Instructions: Please use the inhaler as directed to help with spasm and wheeze. Take the steroid to reduce inflammation and use the Z-Oral to cover for any potential lung infection. It will take on average 2 to 3 days for symptoms to improve. Return to the ER should you have any further concern Print Language: Yakut Disposition Disposition: Home, Self Care Discharge Date/Time: 09/19/24 06:36
[2024-09-19] MEDS: Albuterol Sulfate 8 gm Inhaler (60 puffs) 2 PUFF INHALATION (06:34)
== END 2024-09-19 06:36 | disposition home or self-care (01) ==
PROVIDERS: Emergency Provider Emergency Medicine; PCP General Practice; Visit Provider Emergency Medicine
DX: O99.513 Diseases of the respiratory system complicating pregnancy, third trimester (principal); J10.1 Influenza due to other identified influenza virus with other respiratory manifestations; Z3A.34 34 weeks gestation of pregnancy
CPT/HCPCS: 81001; 94640; 99282

== ENCOUNTER → 2024-10-02 | Outpatient (CLI) | payer OTHER, SELFPAY ==
--- NOTE | 2024-10-02 11:27 | US_ITS ---
PROCEDURE: OB LIMITED WITH BIOMETRICS REASON FOR EXAM: growth. COMPARISON: None. FINDINGS Number: 1 Position: Vertex Placental Position: Anterior and not low-lying. Placental Abnormalities: None. DIMENSIONS: Biparietal Diameter: 9.64 cm: 39 weeks 3 days: 99 percentile/ Head Circumference: 34.13 cm: 39 weeks and 2 days: 91 percentile/ Abdominal Circumference: 30.2 cm: 34 weeks and 1 day: 13 percentile/ Femur Length: 6.93 cm: 35 weeks and 4 days: 34 percentile/ ESTIMATED WEIGHT: 2711 g plus/-407 g ESTIMATED WEIGHT PERCENTILE (24+ weeks): 39 percentile ESTIMATED GESTATIONAL AGE: Baseline: 36 weeks and 0 days By Ultrasound: 37 weeks and 2 days ESTIMATED DATE OF DELIVERY: Baseline: October 30, 2024 By Ultrasound: October 21, 2024 BIOPHYSICAL ASSESSMENT: Amniotic Fluid Volume: Subjectively normal. Amniotic Fluid Index: 13.2 (8-24 cm normal range) Cardiac Motion: 135 beats per minute (average) Trunk and Limb Motion: Present. MATERNAL ANATOMY: Adnexa: Neither maternal ovary is successfully identified. US/OB Limited With Biometrics IMPRESSION: Single live intrauterine gestation with a mean gestational age of 37 weeks and 2 days. [facility]
== END | disposition home or self-care (01) ==
LOC: US 11:25
PROVIDERS: PCP General Practice; Referring Provider Obstetrics & Gynecology; Visit Provider Obstetrics & Gynecology
DX: O09.299 Supervision of pregnancy with other poor reproductive or obstetric history, unspecified trimester (principal); Z3A.00 Weeks of gestation of pregnancy not specified
CPT/HCPCS: 76816

== ENCOUNTER → 2024-10-09 | Outpatient (CLI) | payer OTHER, SELFPAY | END | disposition home or self-care (01) | LOC: LABSPEC 11:56 | PROVIDERS: PCP General Practice; Referring Provider Advanced Practice Midwife; Visit Provider Advanced Practice Midwife | DX: Z34.93 Encounter for supervision of normal pregnancy, unspecified, third trimester (principal); Z3A.37 37 weeks gestation of pregnancy | CPT/HCPCS: 87081 ==

== ENCOUNTER 2024-10-27 07:56 | Inpatient (IN) | payer OTHER, SELFPAY ==
[2024-10-27] VITALS (70 sets, daily range): BP systolic 103–134; BP diastolic 59–80; PULSE 75–132; RESP 16–22; TEMP 36.4–36.7; O2SAT 86–100; BMI 34.2
[2024-10-27] MEDS: Lactated Ringers 1,000 ML 50 ML IV (08:10)
[2024-10-27] MEDS: Lactated Ringers 1,000 ML 999 ML IV (08:10)
[2024-10-27] MEDS: Ondansetron 4 MG/2 ML Vial IV (08:17)
[2024-10-27 08:24] LABS: Absolute Lymphocyte Count 2.44 X10^3/uL (0.83-4.51); Absolute Neutrophil Count 7.8 X10^3/uL (2.0-7.7); Basophil# 0.03 X10^3/uL; Basophil% 0.3 % (0-1); Eosinophil# 0.07 X10^3/uL; Eosinophils% 0.6 % (0-5); Hematocrit 33.8 % (37-47); Hemoglobin 10.9 g/dL (12.0-15.0); Lymphocyte # 2.44 X10^3/ul (0.83-4.51); Lymphocyte % 21.8 % (19-41); Mean Corp Hgb Conc 32.2 g/dL (32-36); Mean Corpuscular Hgb 25.2 pg (27.0-32.0); Mean Corpuscular Volume 78.1 fL (81-99); Mean Platelet Vol. 10.2 fl (6.2-12.0); Monocyte# 0.84 X10^3/uL; Monocyte% 7.5 % (0-10); NRBC Flagged by Analyzer 0 % (0-5); Neutrophil # 7.77 X10^3/uL (2.7-7.7); Neutrophil % 69.3 % (47-70); Platelet Count 360 K/mm3 (150-450); RBC Distribution Width CV 14.4 % (11.6-14.6); RBC Distribution Width SD 40.6 fl (35.1-43.9); Red Blood Count 4.33 M/mm3 (4.2-5.4); White Blood Count 11.2 K/mm3 (4.4-11.0)
--- NOTE | 2024-10-27 08:39 | HP.PCM.OB_ITS ---
HPI - General General Date of Admission: 10/27/24 HPI Narrative LIZBETH ARROYO, is a 34 y/o @ 39 weeks 4 days who presents to l&D in active labor. The nurse who checked her cervix reports that she is 5 cm with a bulging bag and she is requesting an Epidural Maternal Data Information MARVA Calculator Estimated Delivery Date Method Current WG Current Estimate 10/30/24 LMP (Certain) 39w 4d Other Estimates 10/26/24 Ultrasound #1 40w 1d PFSH PFSH Medical History Vaginal delivery Hx of abnormal cervical Pap smear Home Medications ?Medication ?Instructions ?Recorded ?Last Taken ?Type lactobacillus combination no.4 3 3 cell PO DAILY GI Unknown History billion cell capsule (Probiotic) vit no.95-ferrous 1 tab PO DAILY Unknown History fumarate 28 mg-folic acid 800 mcg tablet ( Multivitamins) Allergy/AdvReac Type Severity Reaction Status Date / Time No Known Allergies Allergy Verified 10/27/24 07:52 Family History Father Crohn disease Grandfather Cancer Paternal Grandmother Colitis Paternal Breast cancer Paternal Mother Arthritis Mother was adopted Surgical History [place] teeth extracted H/O dilation and curettage Social History adopted: No household members: spouse and children number of children: 1 current occupational status: employed 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 [employer] current occupational exposures/hazards: No pets and animals: Yes (Avoid litterbox) pets and animals: cat(s) and dog(s) history of recent travel: No sexually active: Yes Smoking Status: Never smoker alcohol intake: current alcohol intake frequency: holidays/special occasions only details: Not while substance use type: does not use well-balanced diet: daily or most days caffeine: No eating out: 1-3 times/week during the past year weight has: remained stable what type of physical activity do you participate in: walking frequency: daily duration: 15-30 minutes/day althea/oriental orthodox: None seatbelt use: always do you feel safe at home: Yes 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 Date Name GA/Weeks Outcome Route Bth Weight Infant Gen Labor Lgth Anesthesia Del Locatn Provider FOB 12/20/20 10 spontaneous 04/11/22 Jeff 39 live - full term vacuum 9#1oz Male epid ural [facility] Serjio Capone [place] Delivery Date: 12/20/20 Last Updated by: Guerita Berry D&C Visit Details Expected Delivery Route/Plan Labor Preferences- CB/BF classes: no labor support person: [place] labor intervention preferences: [] pain management options preferred: epidural!! cut cord/dad catch: no : yes PP control planned: discussed discussed possible routes of delivery and associated risks: [] special requests: [] Plans Covid status: [] Flu vaccine: [] Tdap vaccine: Rhogam: na LARC form signed: yes Problem list reviewed and updated with the most current plan of care details and appropriate orders placed. Relevant counseling for the gestational age provided. Continue routine care and follow up unless otherwise noted in visit notes/problem list details OB Flowsheet Initial Weight: 175 lb Date -?-?-?-?-?-?-?-?-?-?-?-?- EGA Weight BP Urine Prot -?-?-?-?-?-?-?-?-?-?-?-?- Glucose FHR FuHt Pres Dilation -?-?-?-?-?-?-?-?-?-?-?-?- Effaced St Visit Note 04/09/24 -?-?-?-?-?-?-?-?-?-?-?-?- 10w 6d 175 lb 6 oz (+6 oz) 128/83 -?-?-?-?-?-?-?-?-?-?-?-?- 180 -?-?-?-?-?-?-?-?-?-?-?-?- KW- CRL 41.5 con s with dates GA 11.3. Accepts NIPT 05/07/24 -?-?-?-?-?-?-?-?-?-?-?-?- 14w 6d 180 lb 8 oz (+5 lb 8 oz) 118/73 Negative -?-?-?-?-?-?-?-?-?-?-?-?- Negative 160 -?-?-?-?-?-?-?-?-?-?-?-?- KW- no vb/crampi ng. good fm. AFP discussed. KW- no vb/cramping. good fm. AFP discussed. Anatomy scheduled. 06/04/24 -?-?-?-?-?-?-?-?-?-?-?-?- 18w 6d 182 lb 2 oz (+7 lb 2 oz) 116/73 Negative -?-?-?-?-?-?-?-?-?-?-?-?- Negative 147 -?-?-?-?-?-?-?-?-?-?-?-?- JV- no lof, vagi nal bleeding, or dec fm. Has complaints of some round ligament pain. wants AFP today and has anatomy scan later this am 07/03/24 -?-?--?-?-?-?-?-?-?-?-?-?- 23w 0d 186 lb 2 oz (+11 lb 2 oz) 106/62 Negative -?-?-?-?-?-?-?-?-?-?-?-?- Negative 152 23 -?-?-?-?-?-?-?-?-?-?-?--?- LC- no vb/ctx/vb . feeling movement. 08/11/24 -?-?-?-?-?-?-?-?-?-?-?-?- 28w 4d 188 lb 2 oz (+13 lb 2 oz) 110/68 Trace -?-?-?-?-?-?-?-?-?-?-?-?- Negative 164 28 -?-?-?-?-?-?-?-?-?-?-?-?- MH-No VB, LOF. G ood FM. Larc, 28 wk labs. States no fluid intake/enc. 08/28/24 -?-?-?-?-?-?-?-?-?-?-?-?- 31w 0d 190 lb (+15 lb) 129/83 Negative -?-?-?-?-?-?-?-?-?-?-?-?- Negative 153 31 -?-?-?-?-?-?-?-?-?-?-?-?- LC- increased da claudia palpitations. 24 hour holter monitor ordered. 09/11/24 -?-?-?-?-?-?-?-?-?-?-?-?- 33w 0d 190 lb 8 oz (+15 lb 8 oz) 129/81 Trace -?-?-?-?-?-?-?-?-?-?-?-?- Negative 166 33 -?-?-?-?-?-?-?-?-?-?-?-?- JV- no lof, vagi nal bleeding, or dec fm. She will hand in her holter monitor. plan for 36 week growth scan due to history of 9 lb baby last . 09/24/24 -?-?-?-?-?-?-?-?-?-?-?-?- 34w 6d 189 lb 8 oz (+14 lb 8 oz) 125/82 Negative -?-?-?-?-?-?-?-?-?-?-?-?- Negative 145 35 -?-?-?-?-?-?-?-?-?-?-?-?- JV- patient was in ER last week with flu A and possible early pneumonia based on CXR. She did not complete her tamiflu or her z-remi and is not masked today. Importance of completion of medication discussed. has growth scan at 36 weeks. holter monitor showed PVC's but none that were associated with her symptom tracker. 10/09/24 -?-?-?-?-?-?-?-?-?-?-?-?- 37w 0d 193 lb 2 oz (+18 lb 2 oz) 122/78 Negative -?-?-?-?-?-?-?-?-?-?-?-?- Negative 135 37 Cephalic 0 -?-?-?-?-?-?-?-?-?-?-?-?- KW- no vb/lof/ct x. good fm. KW- no vb/lof/ctx. good fm. Growth scan reviewed. gbs today 10/15/24 -?-?-?-?-?-?-?-?-?-?-?-?- 37w 6d 192 lb 8 oz (+17 lb 8 oz) 117/81 Negative -?-?-?-?-?-?-?-?-?-?-?-?- Negative 140 37 Cephalic -?-?-?-?-?-?-?-?-?-?-?-?- SM- no vb lof go od fm no reuglar ctx 10/22/24 -?-?-?-?-?-?-?-?-?-?-?-?- 38w 6d 195 lb (+20 lb) 115/74 Negative -?-?-?-?-?-?-?-?-?-?-?-?- Negative 145 38 Cephalic 0 .5 -?-?-?-?-?-?-?-?-?-?-?-?- -2 KW- no v b/lof/ctx. good fm. discussed EPO ROS Constitutional Constitutional: Denies change in weight, fatigue, fever(s), headache(s), poor appetite or weakness Eyes Eyes: Denies blurry vision, change in vision, seeing flashes or spots in vision ENT HEENT: Denies dizziness, headache(s), loss taste/smell or sore throat Cardiovascular Cardiovascular: Denies chest pain, dizziness, dyspnea, irregular heart rhythm, leg edema, palpitations, rapid heart rate or vomiting Respiratory/Chest Respiratory/Chest: Denies chest tightness, cough, dyspnea or breast pain Gastrointestinal Gastrointestinal: Denies abdominal pain, anorexia, constipation, cramping, diarrhea, hemorrhoids, vomiting or weight changes Genitourinary Genitourinary: Denies dysuria, flank pain, genital lesions, genital pain, urinary frequency or urinary urgency Musculoskeletal Musculoskeletal: Denies back pain, difficulty walking, joint pain, limited range of motion, muscle cramps or numbness Integumentary Integumentary: Denies lesions or unusual bruising Neurologic Neurologic: Denies abnormal movements, abnormal speech, dizziness, numbness, seizure-like activity or syncope Psychiatric Psychiatric: Denies anxiety, behavioral changes, change in appetite, change in libido, cognitive impairment, confusion, depression, difficulty concentrating, hallucinations or suicidal thoughts Endocrine Endocrinology: Denies excessive sweating, polydipsia or polyuria Hematologic/Lymphatic Hematologic/Lymphatic: Denies easy bleeding, easy bruising or lymphadenopathy Allergic/Immunologic Allergic/Immunologic: Denies itchy eyes, lip swelling, seasonal rhinorrhea, rhinitis, throat swelling, tongue swelling, eczemia, wheezing or asthma Vital Signs Vital Signs Vital Signs: 10/27/24 07:51 10/27/24 07:51 10/27/24 08:04 Temperature Temperature Source Temporal Pulse Rate 88 Respiratory Rate Blood Pressure 124/66 H BP Systolic 124 BP Diastolic 66 10/27/24 08:04 10/27/24 08:04 Temperature 97.6 F L Temperature Source Pulse Rate Respiratory Rate 16 Blood Pressure BP Systolic BP Diastolic Weight Weight: 193 lb 5.526 oz Body Mass Index (BMI) 34.2 Physical Exam Const alert, oriented x3, no apparent distress and healthy appearing General Appearance: cooperative; Negative for anxious HEENT normocephalic Face and Sinus: normal facial exam Eyes EOMs intact bilaterally and no scleral icterus General Eye: normal appearance of both eyes Neck full ROM and supple Lymph Lymphatic: no lymphadenopathy noted Chest Chest: abnormal inspection of the chest Resp normal respiratory effort Effort and Inspection: able to speak in complete sentences Cardio regular rate GI soft to palpation and non-tender Inspection: gravid Palpation: soft; Negative for tender external exam normal Back/Spine no CVA tenderness Extremity normal to inspection, full ROM and no clubbing, cyanosis or edema General Extremity: Negative for calf tenderness or edema Skin Lesions: no lesions Rashes: no rashes Psych mental status grossly normal Labs Labs Labs: Blood Type B POSITIVE Antibody Screen NEGATIVE Hct 33.8 % (37-47) L Hgb 10.9 g/dL (12.0-15.0) L Obstetrics Ultrasound Syphilis Total Ab Non-reactive Rubella IgG Antibody Reactive (Nonreactive) Hep Bs Antigen Non-Reactive (Nonreactive) Hepatitis C Antibody Non-Reactive (Nonreactive) Chlamydia DNA (SHIOLH) Negative (Negative) N.gonorrhoeae DNA (SHILOH) Negative (Negative) HIV 1&2 Antibody Non-Reactive (Nonreactive) Glucose 1 Hr 50 gm 113 mg/dL (70-140) Rhogam given: No Miscellaneous Test Comment Assessment & Plan (1) Hx of macrosomia in infant in prior , currently : (2) History of vacuum extraction assisted delivery: (3) Supervision of high-risk : QUALIFIERS: Trimester: third trimester Qualified Code(s): O09.93 - Supervision of high risk , unspecified, third trimester COMMENT: PRR,, MARVA 10/30/24, boy PC Jeff, [place] (4) : QUALIFIERS: Weeks of gestation: 38 weeks Qualified Code(s): Z3A.38 - 38 weeks gestation of COMMENT: Diego GBS neg, LR NIPT w/gender/boy & Carrier declined, normal anatomy. Neg AFP (5) History of miscarriage: COMMENT: 2020 (6) Overactive bladder: COMMENT: non-medicated PLAN: Plan Patient presents IAL, plan expectant management for , pitocin/AROM PRN if needed. Pain management: plans epidural. GBS negative. Management of any complications: none I have reviewed the [facility] and made any clinically relevant updates.
[2024-10-27 08:59] LABS: Syphilis Antibodies Nonreactive (Nonreactive)
[2024-10-27] MEDS: fentaNYL-bupivacaine (epidural) 100 ML BAG EPIDURAL (09:23)
[2024-10-27] MEDS: Oxytocin 10 UNITS/ML Vial IM (12:34)
[2024-10-27] MEDS: Oxytocin 15 Units/NS 250ml 15 UNITS/250 ML IV.SOLN 83 UNITS IV (12:34)
--- NOTE | 2024-10-27 12:47 | OB.VAGDELI_ITS ---
Assessment & Plan (1) Hx of macrosomia in in prior , currently : (2) History of vacuum extraction assisted delivery: (3) Supervision of high-risk : QUALIFIERS: Trimester: third trimester Qualified Code(s): O09.93 - Supervision of high risk , unspecified, third trimester COMMENT: PRR,, MARVA 10/30/24, boy FEDERICA Aguilar, [place] (4) : QUALIFIERS: Weeks of gestation: 38 weeks Qualified Code(s): Z3A.38 - 38 weeks gestation of COMMENT: Diego GBS neg, LR NIPT w/gender/boy & Carrier declined, normal anatomy. Neg AFP (5) History of miscarriage: COMMENT: 2020 (6) Overactive bladder: COMMENT: non-medicated Maternal Data Information MARVA Calculator Estimated Delivery Date Method Current WG Current Estimate 10/30/24 LMP (Certain) 39w 4d Other Estimates 10/26/24 Ultrasound #1 40w 1d Final MARVA: 10/30/24 Final MARVA Source: LMP Gestational age: 39 weeks 4 days Vaginal Delivery Maternal Presentation Maternal Presentation: Active Labor Type of Induction: Amniotomy Vaginal Delivery Information Surgeon/Practitioner: Tiff Boss Date of Procedure: 10/27/24 Pre-Procedure Diagnosis: 34 y/o @ 39 weeks 4 days, active labor Post-Procedure Diagnosis: 34 y/o @ 39 weeks 4 days, active labor Type of anesthesia: Epidural Estimated Blood Loss: 200cc Time of Delivery: 12:30 Findings Description of procedure: Patient began pushing and delivered the head in the RUBY presentation. The head was delivered atraumatically. The anterior and posterior shoulders delivered without complication followed by the rest of the and the was placed on the maternal abdomen. Delayed cord clamping was employed for approximately 60 seconds. Cord was clamped and cut and gentle traction was applied to the cord and the placenta delivered spontaneously immediately following it was noted to be intact with three-vessel cord. The perineum and vagina were inspected and noted to have a 1st degree perineal laceration. EBL was 200cc. Patient and tolerated delivery well. Procedure findings: viable male infant [place] Presentation: Vertex Amniotic Membrane Rupture Type: Artificial Amniotic Fluid Description: Clear Placental Delivery Description: Spontaneous Placenta Disposition: [facility] Specimen collected: No Cord Vessel Description: 3 Vessels Cord Entanglement: None Infant A Gender: Male (1 minute): 8 (5 minute): 9 Delayed Cord Clamping: Yes Medical Service Technician wide piece goods inspector: No Post Vaginal Deli Medications given after delivery: IV Pitocin Episiotomy Description: None Laceration: 1st degree Complication Complications: No Multi Select Codes Urinary/Genital Urinary/Genital CPT Codes: 72079 Vaginal Delivery Only
--- NOTE | 2024-10-27 12:51 | DCINST_ITS ---
Discharge Instructions Diet Discharge Diet: No restrictions DC O2, CPAP, BIPAP needs Home O2 Discharge instructions: No Dressing / Incision Discharge Activity: Return to Normal Activity, May Not Drive (while taking narcotic pain medications.) and May Shower May resume sexual activity in: 4-6 weeks Dressing / Incision Call your doctor if your incision/area has: Continuous Slow Oozing, Sudden Increased Bleeding, Increased Pain/ Swelling, Increased Redness and Foul Smelling Discharge Follow Up Care Please Follow Up With: Tiff Boss, When: Call [phone] to make an appointment with your doctor in 6 weeks. If you had elevated blood pressure or 4th degree laceration, you will need to be seen in 2 weeks. Test Results: Test results from this visit will be discussed in further detail at your follow- up appointment, if applicable. Discharge Plan Admission Admit Date/Time: 10/27/24 07:40 Attending Provider: Tiff Boss Primary Care Provider: Winnie Almaguer Discharge Orders/Prescriptions Prescriptions: No Action Probiotic 3 billion cell Capsule 3 cell PO DAILY PNV cmb#95-ferrous fumarate-FA [ Multivitamins] 28 mg iron- 800 mcg tablet 1 tab PO DAILY Referrals / Follow Up: Winnie Almaguer MD [Primary Care Provider] -
[2024-10-28] VITALS: BP 103/61; PULSE 86; RESP 14; TEMP 36.3; O2SAT 96
[2024-10-28 04:00] VITALS: BP 132/71; PULSE 95; RESP 14; TEMP 36.3; O2SAT 98
--- NOTE | 2024-10-28 07:13 | PCM.PN.OB ---
Subjective Subjective Patient doing well without complaints. Tolerating PO. Ambulating and voiding without difficulty. feeding well. Denies chest pain, shortness of breath, calf pain/swelling, fevers, chills, lightheadedness. Objective Data Objective Data Vital Signs: Vital Signs Temp Pulse Resp BP Pulse Ox O2 Del Method 97.4 F L 95 14 132/71 H 98 Room Air 10/28/24 04:00 10/28/24 04:00 10/28/24 04:00 10/28/24 04:00 10/28/24 04:00 10/28/24 04:00 Oxygen Delivery Method Room Air Weight: 193 lb 5.526 oz Body Mass Index (BMI) 34.2 Intake & Output: Intake and Output for Last 24 Hours 10/26/24 10/27/24 10/28/24 23:59 23:59 23:59 Intake Total 2106.67 / 2106.67 Output Total 1350 / 1350 Balance 756.67 / 756.67 Lab / Micro Data 10/27/24 08:00 Labs: Laboratory Results - last 24 hr 10/27/24 08:00: WBC 11.2 H, RBC 4.33, Hgb 10.9 L, Hct 33.8 L, MCV 78.1 L, MCH 25.2 L, MCHC 32.2, RDW Std Deviation 40.6, RDW Coeff of Amber 14.4, Plt Count 360, MPV 10.2, Immature Gran % (Auto) 0.500, Neut % (Auto) 69.3, Lymph % (Auto) 21.8, Runnels % (Auto) 7.5, Eos % (Auto) 0.6, Baso % (Auto) 0.3, Absolute Neuts (auto) 7.8 H, Absolute Lymphs (auto) 2.44, Nucleated RBC % 0, Syphilis Total Ab Nonreactive, Blood Type B POSITIVE, Antibody Screen NEGATIVE ROS Constitutional Constitutional: Reports systems reviewed and no addt'l complaints, except as documented Cardiovascular Cardiovascular: Reports systems reviewed and no addt'l complaints, except as documented Respiratory/Chest Respiratory/Chest: Reports systems reviewed and no addt'l complaints, except as documented Gastrointestinal Gastrointestinal: Reports systems reviewed and no addt'l complaints, except as documented Physical Exam Const alert, oriented x3 and no apparent distress HEENT Head and Scalp: atraumatic Resp normal respiratory effort GI soft to palpation and non-tender Bimanual Exam - Vag & Uterus: uterus non-tender Uterus Palpation: uterus fundus firm (below Umbilicus) Assessment & Plan (1) Vaginal delivery: COMMENT: NADEEM massey 10/27/24 PLAN: Plan s/p PPD # 1 1. routine post delivery care 2. breast feeding- support given 3. rh positive 4. rubella immune
[2024-10-28 08:09] VITALS: BP 115/74; PULSE 89; RESP 16; TEMP 36.4
[2024-10-28 08:10] VITALS: BP 115/74; PULSE 89
[2024-10-28] MEDS: Senna/Docusate Sodium 1 Tablet PO (09:30)
[2024-10-28 13:52] VITALS: BP 114/69; PULSE 86; RESP 16; TEMP 36.7
[2024-10-28] MEDS: Benzocaine/Lanolin/Aloe Vera 85 GM Spray 1 SPRAY TOPICAL (14:07)
== END 2024-10-28 17:45 | disposition home or self-care (01) | DRG 807 ==
PROVIDERS: Admitting Provider Obstetrics & Gynecology; PCP General Practice; Referring Provider Obstetrics & Gynecology; Visit Provider Obstetrics & Gynecology
DX: O99.892 Other specified diseases and conditions complicating childbirth (principal); Z37.0 Single live birth; N32.81 Overactive bladder; O70.0 First degree perineal laceration during delivery; Z87.59 Personal history of other complications of pregnancy, childbirth and the puerperium; Z3A.39 39 weeks gestation of pregnancy
CPT/HCPCS: 59025; 59050; 85025; 86780; 86850; 86900; 86901; 99221; G0378; J2405